=== PATIENT | female | born 1945 | race Caucasian/White ===

== ENCOUNTER 2019-06-20 08:49 | Outpatient (CLI) | payer MEDICARE, SELFPAY ==
--- NOTE | ~2019-06-20 | MM_ITS ---
EXAMINATION: MM screening george BI w rosalia HISTORY: Screening mammogram TECHNIQUE: Craniocaudal and mediolateral oblique 3-D tomosynthesis images were obtained and synthetic 2-D images were generated. CAD analysis was submitted and interpreted. COMPARISON: 06/16/2017 bilateral digital screening mammogram BREAST PARENCHYMAL COMPOSITION: The breasts are heterogeneously dense, which may obscure small masses . FINDINGS: Bilateral benign calcifications. There is no evidence of suspicious mass, calcification, or architectural distortion to suggest malignancy in either breast. There has been no suspicious interv al change. IMPRESSION: 1. No mammographic evidence of malignancy. 2. Recommend routine screening mammography in one year. BI-RADS Category 2: Benign finding(s). Reviewed, dictated and finalized at location A.
--- NOTE | ~2019-06-20 | DEXA_ITS ---
Bone Density Report Name: Trinh Amin Age: 73 Sex: Female Ethnicity: White Date of : 1945 Indication: osteopenia; monitoring treatment; prior fracture; Referring Provider: VILMA SHARP Study: Bone densitometry was performed. Exam Date: June 20, 2019 Accession number: [id number] Bone Density: Region BMD T-score Z-score Classification AP Spine (L1-L4) 0.771 -2.5 -0.2 Osteoporosis Femoral Neck (Left) 0.626 -2.0 -0.1 Osteopenia Total Hip (Left) 0.784 -1.3 0.4 Osteopenia Total Hip Bilateral Avg 0.778 -1.4 0.4 Osteopenia Femoral Neck (Right) 0.621 -2.1 -0.1 Osteopenia Total Hip (Right) 0.771 -1.4 0.3 Osteopenia World Health Organization criteria for BMD impression classify patients as: Normal (T-score at or above -1.0), Osteopenia (T-score between -1.0 and -2.5), or Osteoporosis (T-score at or below -2.5). 10-year Fracture Risk: FRAX not reported because: Some T-score for Spine Total or Hip Total or Femoral Neck at or below -2.5 Treated for osteoporosis Previous Exams: Region Exam Age BMD T-score BMD Change BMD Change Date g/cm2 vs Baseline vs Previous AP Spine(L1-L4) 06/20/2019 73 0.771 -2.5 -0.027(-3.4%)# -0.027(-3.4%)# 06/16/2017 71 0.798 -2.3 Total Hip(Left) 06/20/2019 73 0.784 -1.3 -0.007(-0.9%) -0.007(-0.9%) 06/16/2017 71 0.791 -1.2 Total Hip(Right) 06/20/2019 73 0.771 -1.4 0.006(0.8%) 0.006(0.8%) 06/16/2017 71 0.765 -1.4 *Denotes significance at 95% confidence level, LSC for AP Spine = 0.022 g/cm2, LSC for Total Hip = 0.027 g/cm2 Clinical Information Provided by Patient: Has had a low trauma fracture Is being treated for osteoporosis Has used the following medications: Fosamax (i.e. alendronate), Vitamin D Patient maximum height was 64 Menopause Age: 47 Drinks caffeinated beverages Onset of menses at age 14 Number of children 1 Impression: The patient has established osteoporosis, based on the Total Spine T-score and the existence of a prior fracture. The patient has risk factors, including: previous fracture. No significant bone loss was observed. Discussion: PATIENT UNDER TREATMENT WITH NO SIGNIFICANT BMD LOSS SINCE LAST EXAM. In an untreated patient, BMD typically declines with age. A lack of decline or gain is usually a sign that treatment is efficacious and fracture risk is reduced. It is important to ask patients whether they are taking their medications and to encourage continued and appropriate c
== END 2019-06-20 08:50 | disposition home or self-care (01) ==
LOC: ANHIMG 08:52
PROVIDERS: PCP Family Medicine; Visit Provider Nurse Practitioner Family
DX: Z12.31 Encounter for screening mammogram for malignant neoplasm of breast (principal); Z78.0 Asymptomatic menopausal state; M85.89 Other specified disorders of bone density and structure, multiple sites; M81.0 Age-related osteoporosis without current pathological fracture
CPT/HCPCS: 77063; 77067; 77080

== ENCOUNTER 2020-10-07 12:03 | Emergency (ER) | payer MEDICARE, SELFPAY ==
[2020-10-07 12:12] VITALS: BP 122/93; PULSE 72; RESP 18; TEMP 36.3; O2SAT 100
--- NOTE | 2020-10-07 12:37 | ED.GENADULT ---
HPI - General Adult General Chief complaint: Extremity Injury, Lower Stated complaint: Left foot swelling Time Seen by Provider: 10/07/20 12:24 Source: patient and RN notes reviewed Mode of arrival: ambulatory Limitations: no limitations History of Present Illness HPI narrative: Patient presents today complaining of 4-day history of left lower leg and foot swelling without pain. States the swelling is worsening and she became more concerned today because she was unable to get her shoe on well. Patient just returned last night at midnight from a cruise. She did fly out and return via airplane. States the swelling started while she was on her cruise. Denies numbness or tingling in the leg or foot. Denies history of DVT. She is not on any blood thinners. MD complaint: Left leg swelling Related Data Home Medications Medication Instructions Recorded Confirmed cholecalciferol (vitamin D3) 50 2,000 unit PO DAILY 03/21/19 10/07/20 mcg (2,000 unit) capsule Allergies Allergy/AdvReac Type Severity Reaction Status Date / Time Sulfa (Sulfonamide Allergy Unknown Pruritic Verified 10/07/20 12:16 Antibiotics) rash Review of Systems Review of Systems: CONSTITUTIONAL: Denies body aches, fever, chills, or sweats. EYES: Denies visual changes, redness, or discharge. ENT: Denies rhinorrhea, congestion, sore throat, or otalgia. CARDIOVASCULAR: Denies chest pain, palpitations, or edema. RESPIRATORY: Denies cough or dyspnea. GASTROINTESTINAL: Denies abdominal pain, nausea, vomiting, or diarrhea. GENITOURINARY: Denies dysuria or hematuria. SKIN: Denies rash, itching, or wounds. MUSCULOSKELETAL: Denies back pain, joint pain, or myalgia. +Left leg and foot swelling NEUROLOGIC: Denies headache, numbness, tingling, or weakness. PSYCH: Denies depression or anxiety. [facility] Past Medical History Medical History Fracture of right humerus (~05/2018) Mammogram normal (~06/20/19) Megacolon Osteopenia Took Fosamax 1125-5430, 06/2019-present Dexa scan 06/2019 Osteoporosis Shingles (~10/2017) Skin cancer (~2008) Vitamin D deficiency Surgical History Surgical History History of dilatation and curettage (~1974) History of hysterectomy (~2002) Hx of colonoscopy (~07/16/17) Family History Family History Grandparent Cerebrovascular accident Family history of malignant neoplasm Diabetes mellitus Mother Family history of chronic obstructive pulmonary disease Father Family history of Alzheimer's disease Family history of heart disease in male family member before age 55 Patient's father is , Onset Age: 84 Hypertension Family history of cardiovascular disease Social History Social History Smoking status: Never smoker Second hand tobacco smoke exposure: No Alcohol intake: current Comments At time of signature, I have reviewed and agree with nursing past medical, surgical, social and family history unless otherwise noted. Please see nursing chart for further information. There is no relevant family history pertinent to the presenting complaint Exam Narrative: GENERAL: Well-appearing, well-nourished, and in no acute distress. HEAD: Normocephalic, atraumatic. EYES: EOMI. No redness or drainage. Conjunctivae normal. ENT: Mucous membranes pink and moist. NECK: Normal AROM. CHEST: No respiratory distress. EXTREMITIES: Left le+ pitting edema to the foot and ankle. 1-2+ nonpitting edema to the distal half of the lower leg, compared to right leg. Leg and foot are nontender. Distal sensation is intact. Capillary refill normal. Pedal pulse strong. Color normal. Full AROM of the ankle and all toes without pain. Negative Homans. No tenderness of the calf. SKIN: Warm, dry, n
== END 2020-10-07 12:45 | disposition short-term general hospital (02) ==
PROVIDERS: Emergency Provider Nurse Practitioner; PCP Nurse Practitioner Family
DX: R22.42 Localized swelling, mass and lump, left lower limb (principal); M81.0 Age-related osteoporosis without current pathological fracture; M85.80 Other specified disorders of bone density and structure, unspecified site; Z85.828 Personal history of other malignant neoplasm of skin; E55.9 Vitamin D deficiency, unspecified
CPT/HCPCS: 99212; G0463

== ENCOUNTER 2020-10-07 13:02 | Emergency (ER) | payer MEDICARE, SELFPAY ==
--- NOTE | ~2020-10-07 | US_ITS ---
EXAMINATION: US venous doppler [facility] DATE: 10/07/2020 14:39 INDICATION: Left lower limb pain and swelling. TECHNIQUE: Grayscale ultrasound images without and with compression and Doppler ultrasound images of the left lower extremity veins were obtained. COMPARISON: None. FINDINGS: The visualized portions of left common femoral vein, profunda (deep) femoral vein, femoral vein, popl iteal vein, peroneal veins, posterior tibial veins, and greater saphenous vein outflow are patent. IMPRESSION: 1. No deep venous thrombosis. Reviewed, dictated and finalized at location A.
--- NOTE | ~2020-10-07 | CT_ITS ---
EXAMINATION: CT abdomen pelvis w con DATE: 10/07/2020 17:01 INDICATION: Abdominal distention. TECHNIQUE: Computed tomography (CT) of the abdomen and pelvis was performed with 100 mL Omnipaque 350 intravenous contrast. Automated exposure control and iterative reconstruction technique were employe d. The dose-length product was 445.91 mGy-cm. COMPARISON: Contrast enema 07/17/2017 FINDINGS: The visualized portions of the lung bases demonstrate mild atelectasis. No pleural effusion . The heart size is normal. No pericardial effusion. Left hepatic lobe is small. The gallbladder is n ormal. Calcifications in the spleen are consistent with old granulomatous disease. The pancreas, adre nal glands, and kidneys are normal. There is chronic severe distention of the transverse and descendi ng colon. The sigmoid colon is decompressed. The small bowel is normal in caliber. There are no patho logically enlarged lymph nodes. There is no free intraperitoneal fluid. There is mild thoracolumbar s pondylosis. IMPRESSION: 1. Chronic severe distention of the transverse and descending colon, consistent with adynamic ileus. Reviewed, dictated and finalized at location A.
[2020-10-07 14:11] VITALS: BP 165/89; PULSE 76; RESP 16; TEMP 36.3; O2SAT 97
--- NOTE | 2020-10-07 16:39 | ED.EXTPRO ---
HPI - Extremity Problem General Chief complaint: Extremity Problem,Nontraumatic Stated complaint: left leg edema Time Seen by Provider: 10/07/20 16:02 Source: patient Mode of arrival: ambulatory Limitations: no limitations History of Present Illness HPI Narrative: 75-year-old female Generally in good health Complains of new onset of painless and atraumatic swelling to her left leg times for 5 days Right leg is unaffected Related Data Home Medications Medication Instructions Recorded Confirmed cholecalciferol (vitamin D3) 50 2,000 unit PO DAILY 03/21/19 10/07/20 mcg (2,000 unit) capsule Allergies Allergy/AdvReac Type Severity Reaction Status Date / Time Sulfa (Sulfonamide Allergy Unknown Pruritic Verified 10/07/20 12:16 Antibiotics) rash Review of Systems Review of Systems: All systems reviewed & are unremarkable except as noted in HPI and below Constitutional: Constitutional: Reports no additional constitutional complaints, Denies chills, Denies fever(s) and Denies headache(s) Eyes: Eyes: Reports no additional eye complaints and Denies change in vision ENT: Denies headache(s) and Denies sore throat Cardiovascular: Cardiovascular: Denies chest pain and Denies dyspnea Respiratory: Respiratory: Denies cough and Denies dyspnea Gastrointestinal: Gastrointestinal: Denies abdominal pain, Denies diarrhea and Denies vomiting Comments: Distention Genitourinary: Genitourinary: Denies urinary frequency and Denies dysuria Musculoskeletal: Musculoskeletal: Denies myalgias, Denies deformity, Denies arthralgias, Denies joint swelling and Denies numbness Integumentary/Breasts: Skin/Breast: Denies rash and Denies wounds Neurologic: Denies headache(s), Denies focal weakness and Denies numbness Psychiatric: Psychiatric: Reports no additional psychiatric complaints Endocrine: Endocrine: Reports no additional endocrine complaints Hematologic/Lymphatic: Hematologic/Lymphatic: Reports no additional hematologic/lymphatic complaints Allergic/Immunologic: Allergic/Immunologic: Reports no additional allergic/immunologic complaints [facility] Past Medical History Medical History Fracture of right humerus (~05/2018) Mammogram normal (~06/20/19) Megacolon Osteopenia Took Fosamax 7420-3719, 06/2019-present Dexa scan 06/2019 Osteoporosis Shingles (~10/2017) Skin cancer (~2008) Vitamin D deficiency Surgical History Surgical History History of dilatation and curettage (~1974) History of hysterectomy (~2002) Hx of colonoscopy (~07/16/17) Family History Family History Grandparent Cerebrovascular accident Family history of malignant neoplasm Diabetes mellitus Mother Family history of chronic obstructive pulmonary disease Father Family history of Alzheimer's disease Family history of heart disease in male family member before age 55 Patient's father is , Onset Age: 84 Hypertension Family history of cardiovascular disease Social History Social History Smoking status: Never smoker Second hand tobacco smoke exposure: No Alcohol intake: current Gender identity (if verbalized by the patient): Female Exam Const: General: cooperative and no acute distress Orientation/consciousness: patient oriented x3 (alert) HENMT: Head: normal to inspection, normocephalic and atraumatic Ears: external ears normal General nose exam: no epistaxis Eyes: Conjunctivae: conjunctivae normal EOM: EOMs intact bilaterally Neck: Neck: normal visual inspection, supple and no JVD Resp: Effort & Inspection: normal respiratory effort and not labored Auscultation: clear to auscultation bilaterally and other (BS =) GI: Inspection: distended GI Palp: Yes Soft to
[2020-10-07 16:54] LABS: Estimated CRCL calculation 48 ml/min; Estimated Glomerular Filt Rate > 60
[2020-10-07 16:56] LABS: Basophils Absolute Auto 0.1 K/mm3 (0.0-0.1); Basophils Percent Auto 0.9 % (0.2-1.2); Eosinophils Absolute Auto 0.4 K/mm3 (0-0.3); Eosinophils Percent Auto 5.8 % (0-4.4); Hemoglobin 15.6 g/dL (12.0-15.0); Immature Granulocyte Absolute 0.02 K/mm3 (0.00-0.031); Immature Granulocyte Percent A 0.3 % (0-0.5); Lymphocytes Absolute Auto 1.92 K/mm3 (0.9-3.2); Lymphocytes Percent Auto 28.4 % (18.3-44.2); Mean Corpuscular HGB Conc 32.5 g/dl (32-36); Mean Corpuscular Hemoglobin 30.1 pg (26-34); Mean Corpuscular Volume 92.7 fl (80-100); Monocytes Absolute Auto 0.6 K/mm3 (0.1-0.6); Monocytes Percent Auto 8.7 % (2.6-8.5); Neutrophils Absolute Auto 3.8 K/mm3 (1.3-6.7); Neutrophils Percent Auto 55.9 % (45.5-73.1); Platelet Count Result 160 k/mm3 (150-375); Red Blood Count 5.18 M/mm3 (4.2-5.4); Red Cell Distribution Width 13.9 % (11.5-14.5); White Blood Count 6.8 K/mm3 (4.5-10.0)
[2020-10-07 17:11] LABS: Alanine Aminotransferase 23 U/L (4-35); Albumin Level 4.7 g/dL (3.5-5.1); Alkaline Phosphatase 59 U/L (38-126); Anion Gap 10 mmol/L (8-16); Aspartate Amino Transferase 34 U/L (14-36); Bilirubin,Total 0.9 mg/dL (0.2-1.3); Blood Urea Nitrogen 18 mg/dL (7-17); Calcium 9.3 mg/dL (8.4-10.2); Carbon Dioxide 26 mmol/L (22-30); Chloride 101 mmol/L (98-107); Estimated CRCL calculation 48 ml/min; Estimated Glomerular Filt Rate > 60; Glucose 85 mg/dL (65-110); Potassium 3.8 mmol/L (3.4-5.0); Sodium 137 mmol/L (137-145)
[2020-10-07 17:44] VITALS: BP 149/78; PULSE 82; RESP 16; O2SAT 98
== END 2020-10-07 18:00 | disposition home or self-care (01) ==
PROVIDERS: Emergency Provider Emergency Medicine; PCP Nurse Practitioner Family
DX: R60.0 Localized edema (principal)
CPT/HCPCS: 74177; 80053; 85025; 93971; 99284; Q9967

== ENCOUNTER 2020-12-03 08:34 | Outpatient (CLI) | payer MEDICARE, SELFPAY ==
--- NOTE | 2020-12-03 08:39 | ECHO_ITS ---
Patient Info Name: Trinh Amin Age: 75 years : 1945 Gender: Female Ht: 64 in Wt: 168 lbs BSA: 1.88 m2 HR: 63 bpm BP: 152 / 95 mmHg Technical Quality: Fair Exam Date: 12/03/2020 8:52 AM Exam Location: [facility] Patient Status: Outpatient Admit Date: 12/03/2020 Staff Ordering Physician: Mariann Chin NP Risk Control Analyst: Clara Garcia RDCS Attending Provider: Mariann Chin NP Referring Physician: Giuseppe FAITH; Exam Type: CA echo doppler color flow Study Info Indications R60.0 - Localized edema Complete two-dimensional, color flow and Doppler transthoracic echocardiogram is performed. Summary 1. Complete two-dimensional, color flow and Doppler transthoracic echocardiogram is performed. 2. Left ventricular chamber dimension is normal. 3. Left ventricular systolic function is normal, estimated at 60-65%. 4. The left ventricular diastolic function is grade I diastolic dysfunction. 5. E/e' 8 is minimally elevated. Left Ventricle E/e' 8 is minimally elevated. Left ventricular chamber dimension is normal. Left ventricular systolic function is normal, estimated at 60-65%. The left ventricular diastolic function is grade I diastolic dysfunction. Right Ventricle Right ventricular chamber dimension is normal. Right ventricular systolic function is normal. Left Atria Left atrial chamber dimension is normal. Right Atria Right atrial chamber dimension is normal. Aortic Valve The aortic valve is trileaflet. There is no aortic valve stenosis. There is no aortic valve regurgitation. Pulmonic Valve There is no pulmonic regurgitation. Mitral Valve There is no mitral valve stenosis. There is no mitral valve regurgitation. Tricuspid Valve There is no tricuspid valve regurgitation. Pericardium/Pleural There is no pericardial effusion. Inferior Vena Cava Normal inferior vena cava with >50% collapse upon inspiration consistent with normal right atrial pressure, 5 mmHg. Aorta The aortic root size at the sinus of Valsalva is normal. Left Ventricular Outflow Tract Name Value Normal LVOT 2D LVOT Diameter 2.0 cm LVOT Doppler LVOT Peak Gradient 3 mmHg LVOT Mean Gradient 2 mmHg LVOT VTI 21 cm LVOT VTI/AV VTI Ratio 0.9 LVOT Stroke Volume 64 ml LVOT CO 3.8 l/min LVOT CI 2.0 l/min/m2 Pulmonic Valve Name Value Normal RVOT Doppler RVOT Peak Gradient 2 mmHg PV Doppler PV Peak Gradient 3 mmHg Mitral Valve Name
== END 2020-12-03 08:35 | disposition home or self-care (01) ==
PROVIDERS: PCP Family Medicine; Visit Provider Nurse Practitioner Family
DX: R60.0 Localized edema (principal)
CPT/HCPCS: 93306

== ENCOUNTER 2021-07-22 08:56 | Outpatient (CLI) | payer MEDICARE, SELFPAY ==
--- NOTE | ~2021-07-22 | MM_ITS ---
EXAMINATION: MM screening george BI w rosalia HISTORY: Screening mammogram TECHNIQUE: Craniocaudal and mediolateral oblique 3-D tomosynthesis images were obtained and synthetic 2-D images were generated... Bilateral rotated lateral CC views. CAD analysis was submitted and inte rpreted. COMPARISON: No prior mammogram is available for comparison at this institution. BREAST PARENCHYMAL COMPOSITION: The breasts are heterogeneously dense, which may obscure small masses . FINDINGS: Scattered benign calcifications, mainly benign secretory type calcifications. There is no e vidence of suspicious mass, calcification, or architectural distortion to suggest malignancy in eithe r breast. There has been no suspicious interval change. IMPRESSION: 1. No mammographic evidence of malignancy. 2. Recommend routine screening mammography in one year. BI-RADS Category 2: Benign finding(s). Reviewed, dictated and finalized at location A.
--- NOTE | ~2021-07-22 | DEXA_ITS ---
Bone Density Report Name: SOFIE GUILLEN Age: 75 Sex: Female Ethnicity: White Date of : 1945 Indication: postmenopausal osteoporosis; monitoring treatment; height loss; prior fracture; Referring Provider: VILMA SHARP Study: Bone densitometry was performed. Exam Date: July 22, 2021 Accession number: [id number] Bone Density: Region BMD T-score Z-score Classification AP Spine(L1-L4) 0.801 -2.2 0.1 Osteopenia Femoral Neck (Left) 0.628 -2.0 0.1 Osteopenia Total Hip (Left) 0.806 -1.1 0.7 Osteopenia Femoral Neck (Right) 0.649 -1.8 0.3 Osteopenia Total Hip (Right) 0.802 -1.1 0.6 Osteopenia Total Hip Mean 0.804 -1.1 0.7 Osteopenia World Health Organization criteria for BMD impression classify patients as: Normal (T-score at or above -1.0), Osteopenia (T-score between -1.0 and -2.5), or Osteoporosis (T-score at or below -2.5). 10-year Fracture Risk: FRAX not reported because: Treated for osteoporosis Previous Exams: Region Exam Age BMD T-score BMD Change BMD Change Date g/cm2 vs Baseline vs Previous AP Spine (L1-L4) 07/22/2021 75 0.801 -2.2 0.003 (0.4%)# 0.030 (3.9%)* 06/20/2019 73 0.771 -2.5 -0.027 (-3.4%) -0.027 (-3.4%) 06/16/2017 71 0.798 -2.3 Total Hip(Left) 07/22/2021 75 0.806 -1.1 0.016 (2.0%) 0.023 (2.9%) 06/20/2019 73 0.784 -1.3 -0.007 (-0.9%) -0.007 (-0.9%) 06/16/2017 71 0.791 -1.2 Total Hip(Right) 07/22/2021 75 0.802 -1.1 0.037 (4.8%)* 0.031 (4.0%)* 06/20/2019 73 0.771 -1.4 0.006 (0.8%) 0.006 (0.8%) 06/16/2017 71 0.765 -1.4 *Denotes significance at 95% confidence level, LSC for AP Spine = 0.022 g/cm2, LSC for Total Hip = 0.027 g/cm2 # Denotes dissimilar scan types or analysis methods Clinical Information Provided by Patient: Has had a low trauma fracture Is being treated for osteoporosis Has used the following medications: Fosamax (i.e. alendronate) Patient maximum height was 65 Menopause Age: 47 Drinks caffeinated beverages Onset of menses at age 14 Number of children 1 Impression: The patient has low bone mass, based on the Total Spine T-score. The patient has risk factors, including: previous fracture. No significant bone loss was observed. Discussion: PATIENT UNDER TREATMENT WITH NO SIGNIFICANT BMD LOSS SINCE LAST EXAM. In an untreated patient, BMD typically declines with age. A lack of decline or gain is usually a sign that treatment is efficacious and
== END 2021-07-22 08:57 | disposition home or self-care (01) ==
LOC: ANHIMG 08:57
PROVIDERS: PCP Family Medicine; Visit Provider Nurse Practitioner Family
DX: Z12.31 Encounter for screening mammogram for malignant neoplasm of breast (principal); Z78.0 Asymptomatic menopausal state; M85.89 Other specified disorders of bone density and structure, multiple sites
CPT/HCPCS: 77063; 77067; 77080

== ENCOUNTER 2021-07-23 00:20 | Day surgery (SDC) | payer MEDICARE, SELFPAY ==
[2021-07-09 14:05] VITALS: BMI 28.3
[2021-07-09 14:16] VITALS: BMI 28.3
[2021-07-23 08:43] VITALS: BP 139/76; PULSE 84; RESP 18; TEMP 36.6; O2SAT 97
[2021-07-23] MEDS: LACTATED RINGERS 1,000 ML 150 ML IV CONT (08:55)
--- NOTE | 2021-07-23 09:26 | WPDANESEPPF ---
Anes - Initial Pre Proc Eval Procedure: Operation Date: 07/23/21 10:00 Proposed Procedures p Colonoscopy - Hernan Cedeno MD Date/Time: 07/23/21 09:26 Surgeon: Hernan Cedeno MD Pre Op Diagnosis: positive cologuard Patient Data Age: 75 Gender: F Height: 1.63 m Weight: 74.8 kg Last Vital Signs Temp 36.6 C 07/23/21 08:43 Pulse 84 07/23/21 08:43 Resp 18 07/23/21 08:43 BP 139/76 07/23/21 08:43 Pulse Ox 97 07/23/21 08:43 O2 Del Method Room Air 07/23/21 08:43 Allergies Allergy/AdvReac Type Severity Reaction Status Date / Time Sulfa (Sulfonamide Allergy Unknown Pruritic Verified 07/23/21 08:42 Antibiotics) rash Home Medications Medication Instructions Recorded Confirmed Type cholecalciferol (vitamin D3) 50 4,000 unit PO DAILY 03/22/21 07/23/21 History mcg (2,000 unit) capsule alendronate 70 mg tablet 70 mg PO WEEKLY #12 tabs 04/23/21 07/23/21 Rx levothyroxine 50 mcg tablet 50 mcg PO DAILY #90 tabs 06/18/21 07/23/21 Rx peg 3350-electrolytes 236 240 ml PO Q10M #4,000 mL 06/26/21 07/23/21 Rx gram-22.74 gram-6.74 gram-5.86 gram solution (Golytely) Patient hx anesthesia problems: none Family hx anesthesia problems: none Results Review: All pre-operative results and documents have been reviewed as part of the pre-operative evaluation. [facility] Past Medical History Medical History Fracture of right humerus (~05/2018) Hyperlipidemia Mammogram normal (~06/20/19) Megacolon Osteopenia Took Fosamax 1455-7593, 06/2019-present Dexa scan 06/2019 Osteoporosis Shingles (~10/2017) Skin cancer (~2008) Vitamin D deficiency Surgical History Surgical History History of dilatation and curettage (~1974) History of hysterectomy (~2002) Hx of colonoscopy (~07/16/17) Family History Family History Grandparent Cerebrovascular accident Family history of malignant neoplasm Diabetes mellitus Mother Family history of chronic obstructive pulmonary disease Father Family history of Alzheimer's disease Family history of heart disease in male family member before age 55 Patient's father is , Onset Age: 84 Hypertension Family history of cardiovascular disease Social History Social History Smoking status: Never smoker Second hand tobacco smoke exposure: No Alcohol intake: current Alcohol use details: rare, less than 1 per week Substance use type: does not use Living arrangements: alone Gender identity (if verbalized by the patient): Female Spiritual care concerns: No Anes - Eval Final PreProcedure Day of Procedure 07/23/21 09:26 Patient weight: overweight Heart: regular rate and rhythm Lungs: clear to auscultation Airway: Mallampati scale class II Last oral intake: >/= 8 hours ASA classification: II Anesthetic plan: proceed Anesthesia type and monitoring: general GIVS and standard monitoring Results Review: All pre-operative results and documents have been reviewed as part of the pre-operative evaluation. Informed Consent: The patient's anesthetic plan and its attendant risks and benefits were discussed with the patient/family/POA. Questions were solicited and answers provided to the satisfaction of the patient/family/POA.
--- NOTE | 2021-07-23 09:39 | WPDGICN ---
Assessment and Plan Assessment and plan (1) Positive colorectal cancer screening using Cologuard test: Code(s): R19.5 - Other fecal abnormalities Status: Acute Assessment and Plan: Patient presents for screening colonoscopy because of positive Cologuard test further recommendations after endoscopy. 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 It is difficult to know whether this is from chronic constipation or related to a primary diagnosis. Continued use of stool softeners and laxatives on a routine basis are encouraged. 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 Patient has a history of chronic constipation. Previous workup revealed that she had a ken colon. Patient has difficulty with bowel movements that his lifelong. She has had several colonoscopies most recently [address] Hernandez. Distended colon was identified. She has been advised to take a stool softener such as Metamucil and laxative such as MiraLax on rather routine basis. Patient recently found to have a positive Cologuard test. She returns today for colonoscopy to assess more thoroughly. Review of Systems Review of Systems: Review of systems noncontributory. [facility] Past Medical History Medical History Fracture of right humerus (~05/2018) Hyperlipidemia Mammogram normal (~06/20/19) Megacolon Osteopenia Took Fosamax 8801-3213, 06/2019-present Dexa scan 06/2019 Osteoporosis Shingles (~10/2017) Skin cancer (~2008) Vitamin D deficiency Surgical History Surgical History History of dilatation and curettage (~1974) History of hysterectomy (~2002) Hx of colonoscopy (~07/16/17) Family History Family History Grandparent Cerebrovascular accident Family history of malignant neoplasm Diabetes mellitus Mother Family history of chronic obstructive pulmonary disease Father Family history of Alzheimer's disease Family history of heart disease in male family member before age 55 Patient's father is , Onset Age: 84 Hypertension Family history of cardiovascular disease Social History Social History Smoking status: Never smoker Second hand tobacco smoke exposure: No Alcohol intake: current Alcohol use details: rare, less than 1 per week Substance use type: does not use Living arrangements: alone Gender identity (if verbalized by the patient): Female Spiritual care concerns: No Meds Home Medications and Allergies Home Medications Medication Instructions Recorded Confirmed Type cholecalciferol (vitamin D3) 50 4,000 unit PO DAILY 03/22/21 07/23/21 History mcg (2,000 unit) capsule alendronate 70 mg tablet 70 mg PO WEEKLY #12 tabs 04/23/21 07/23/21 Rx levothyroxine 50 mcg tablet 50 mcg PO DAILY #90 tabs 06/18/21 07/23/21 Rx peg 3350-electrolytes 236 240 ml PO Q10M #4,000 mL 06/26/21 07/23/21 Rx gram-22.74 gram-6.74 gram-5.86 gram solution (Golytely) Allergies Allergy/AdvReac Type Severity Reaction Status Date / Time Sulfa (Sulfonamide Allergy Unknown Pruritic Verified 07/23/21 08:42 Antibiotics) rash Vital Signs Vital Signs - 24 hr 07/23/21 08:43 Temperature 97.8 F Pulse Rate 84 Respiratory Rate 18 Blood Pressure 139/76 Pulse Oximetry 97 Oxygen Delivery Room Air Exam Narrative: Physical exam reveals patient to be alert. Vital signs stable. HEENT exam reveals no icterus. Lungs are clear. Heart without murmur. Abdomen bowel sounds
[2021-07-23 10:13] VITALS: BP 119/68; PULSE 73; RESP 23; O2SAT 97
[2021-07-23 10:23] VITALS: BP 120/91; PULSE 73; RESP 23; O2SAT 97
[2021-07-23 10:33] VITALS: BP 142/80; PULSE 73; RESP 20; O2SAT 99
[2021-07-23 10:47] LABS: Hematocrit 46.1 % (37.0-47.0); Mean Corpuscular HGB Conc 32.5 g/dl (32-36); Mean Corpuscular Hemoglobin 30.6 pg (26-34); Mean Corpuscular Volume 94.1 fl (80-100); Mean Platelet Volume 11.5 fl (7.4-10.4); Platelet Count Result 145 k/mm3 (150-375); Red Cell Distribution Width 13.5 % (11.5-14.5); White Blood Count 5.6 K/mm3 (4.5-10.0)
[2021-07-23 11:14] LABS: Alanine Aminotransferase 16 U/L (6-35); Alkaline Phosphatase 62 U/L (38-126); Aspartate Amino Transferase 29 U/L (14-36)
[2021-07-23 11:44] LABS: Carcinoembryonic Antigen 5.8 ng/mL (0.0-3.0)
== END 2021-07-23 11:04 | disposition home or self-care (01) ==
PROVIDERS: PCP Family Medicine; Visit Provider Internal Medicine Gastroenterology
PROC: 0DJD8ZZ Inspection of Lower Intestinal Tract, Via Natural or Artificial Opening Endoscopic (ICD-10-PCS; CPT 45378; principal; 2021-07-23 10:00)
DX: C18.4 Malignant neoplasm of transverse colon (principal); R19.5 Other fecal abnormalities; K59.39 Other megacolon; K59.00 Constipation, unspecified; E78.5 Hyperlipidemia, unspecified; M81.0 Age-related osteoporosis without current pathological fracture; E55.9 Vitamin D deficiency, unspecified; E03.9 Hypothyroidism, unspecified
CPT/HCPCS: 45380; 45381; 36415; 80076; 82378; 85027; 88305; J2704; J7120

== ENCOUNTER → 2021-08-05 09:47 | Outpatient (CLI) | payer MEDICARE, SELFPAY ==
--- NOTE | ~2021-08-05 | CT_ITS ---
EXAMINATION: CT abdomen pelvis wo con DATE: 08/05/2021 10:01 INDICATION: Malignant neoplasm of the colon. TECHNIQUE: Computed tomography (CT) of the abdomen and pelvis was performed without intravenous contr ast. The dose-length product was 818.10 mGy-cm. Automated exposure control and iterative reconstructi on technique were employed. COMPARISON: CT dated 10/07/2020. FINDINGS: There is chronic severe distention of the transverse and ascending colon with transition in the left mid abdomen, coronal images 62-73. Findings suspicious for obstructing mass. Lung bases unremarkable. The liver, spleen, pancreas, adrenal glands and kidneys are unremarkable. Ga llbladder is present. No significant vascular abnormality. No lymphadenopathy. No significant small b owel dilation. No focal lytic or sclerotic lesions. No acute osseous abnormality. IMPRESSION: 1. Chronic severe distention of the transverse and ascending colon with transition in the left midabd omen, suspicious for obstructing mass. Correlate clinically with prior GI examinations. Reviewed, dictated and finalized at location B. IMPRESSION: 1. Chronic severe distention of the transverse and ascending colon with transit ion in the left midabdomen, suspicious for obstructing mass. Correlate clinical ly with prior GI examinations.
== END ==
PROVIDERS: PCP Family Medicine; Visit Provider Surgery
DX: C18.9 Malignant neoplasm of colon, unspecified (principal)
CPT/HCPCS: 74176

== ENCOUNTER 2021-08-13 08:03 | Outpatient (CLI) | payer MEDICARE, SELFPAY ==
--- NOTE | 2021-08-13 09:09 | ECG_ITS ---
Measurements Intervals [place] Rate: 62 P: 44 VT: 156 QRS: -2 QRSD: 92 T: -13 QT: 396 QTc: 405 Interpretive Statements SINUS RHYTHM WITH SINUS ARRHYTHMIA NO PREVIOUS ECG AVAILABLE FOR COMPARISON Electronically Signed On 08-13-2021 11:21:45 CDT by Daniel Hurd M.D.
== END 2021-08-13 08:04 | disposition home or self-care (01) ==
LOC: ANHSURGERY 08:07
PROVIDERS: PCP Family Medicine; Visit Provider Surgery
DX: C18.9 Malignant neoplasm of colon, unspecified (principal)
CPT/HCPCS: 36415; 86850; 86900; 86901; 93005

== ENCOUNTER 2021-08-20 13:58 | Inpatient (IN) | payer MEDICARE, SELFPAY ==
[2021-08-13 08:22] VITALS: BP 169/86; PULSE 74; RESP 16; TEMP 36.3; O2SAT 96; BMI 28.3
--- NOTE | 2021-08-13 08:33 | PC.NURSE ---
Report to the Outpatient Waiting Room, entrance under the green pavilion located off [facility], at time __6:00AM on date __08/19/21 . OR Time: __7:30AM . - You and your visitor will be asked a series of questions to screen for COVID 19 for your protection. - Only one visitor is allowed at this time. - The patient visitor is requested to leave or wait in car when not with patient. - A mask is required within the hospital. Patients may have clear liquids (water, carbonated beverages, clear teas, apple juice) until 3 hours prior to surgery with a maximum of 20 ounces. - No food from midnight until time of surgery BOWEL PREP ON DAY BEFORE SURGERY - Infants may have breast milk until 4 hours before surgery, infant formula 6 hours prior to surgery. - Children will be allowed to drink immediately following surgery. If applicable, please bring a bottle or sippy cup to assist with drinking. Juice, water, soda, and popsicles are readily available. For infants on formula, please bring formula the day of surgery. Pacifiers are allowed. ENSURE BUNDLE DIRECTED Take the following medications with a SIP of water the morning of surgery: __LEVOTHYROXINE Medications to discontinue per physician ____HOLD ALL VITAMINS/SUPPLEMENTS 3 DAYS PRE-OP 3 DAYS PRE-OP Date to take last dose____08/15/21 TAKE ANTIBIOTICS DIRECTED ON DAY BEFORE SURGERY Please no make-up, nail mohawk, hairspray, perfume, deodorant, or body powder the day of surgery. No jewelry (including any body piercings) or valuables the day of surgery, leave them at home. Please take a shower or bath the night before, or the morning of, surgery with an antibacterial soap. Wear comfortable, loose fitting clothing. Children are encouraged to wear pajamas. - Jewelry must be removed prior to entering the operating room. Rings and piercings that are not removed may be cut off. - The hospital will not accept responsibility for valuables. - Please leave all valuables, including medications, at home the day of surgery. HIBICLENS SHOWER ON DAY BEFORE SURGERY AND MORNING OF SURGERY If you are going home after surgery, a licensed livery car driver must drive you home. - NO public transportation without another adult. - We recommend that an adult stay with you for 24 hours following discharge. - We also recommend that you do not drive, make important decision, drink alcoholic beverages, or take any drugs that were not prescribed by your health care provider for at least 24 hours after your discharge time. For Pediatric surgeries, we recommend two adults accompany the child home (only one inside the building at this time). Follow any additional instructions given to you from your surgeon. If you or anyone in your household have experienced Covid symptoms in the past week, please notify your surgeon or the nurse liaison at the phone number below for possible testing. Telephone instructions given to __PATIENT and asked if any additional questions and then verbalized understanding. Patient advised to call surgeon office or pre surgery nurse liaison [phone] if any additional questions.
[2021-08-19] VITALS (15 sets, daily range): BP systolic 104–128; BP diastolic 53–69; PULSE 62–84; RESP 12–20; TEMP 35.5–36.5; O2SAT 95–100
[2021-08-19] MEDS: LACTATED RINGERS 1,000 ML 30 ML IV CONT ×2 (06:30→13:18)
[2021-08-19] MEDS: ACETAMINOPHEN 500 MG TABLET 1000 MG PO ×2 (06:35→21:36)
[2021-08-19] MEDS: KETOROLAC 15 MG/ML VIAL (*BKC) IV PUSH (06:39)
--- NOTE | 2021-08-19 06:45 | WPDANESEPPF ---
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 Patient Data Age: 75 Gender: F Height: 1.64 m Weight: 76 kg Last Vital Signs Temp 36.3 C L 08/13/21 08:22 Pulse 74 08/13/21 08:22 Resp 16 08/13/21 08:22 BP 169/86 H 08/13/21 08:22 Pulse Ox 96 08/13/21 08:22 O2 Del Method Room Air 08/13/21 08:22 Allergies Allergy/AdvReac Type Severity Reaction Status Date / Time Sulfa (Sulfonamide Allergy Unknown Pruritic Verified 08/13/21 08:15 Antibiotics) rash Home Medications Medication Instructions Recorded Confirmed Type cholecalciferol (vitamin D3) 50 4,000 unit PO DAILY 03/22/21 08/19/21 History mcg (2,000 unit) capsule alendronate 70 mg tablet 70 mg PO WEEKLY #12 tabs 04/23/21 08/19/21 Rx ondansetron 4 mg disintegrating 4 mg PO Q6H PRN nausea and 07/31/21 08/19/21 Rx tablet vomiting #10 tabs erythromycin 500 mg tablet 1 g PO .COMPLEX #6 tabs 08/01/21 08/13/21 Rx neomycin 500 mg tablet 1 g PO .COMPLEX #6 tabs 08/01/21 08/13/21 Rx levothyroxine 50 mcg tablet 50 mcg PO QAM 08/13/21 08/19/21 History polyethylene glycol 3350 17 17 g PO BID 08/13/21 08/13/21 History gram/dose oral powder (Miralax) Patient hx anesthesia problems: none Family hx anesthesia problems: none Results Review: All pre-operative results and documents have been reviewed as part of the pre-operative evaluation. [facility] Past Medical History Medical History Fracture of right humerus (~05/2018) Hyperlipidemia Mammogram normal (~06/20/19) Megacolon Osteopenia Took Fosamax [id number], 06/2019-present Dexa scan 06/2019 Osteoporosis Shingles (~10/2017) Skin cancer (~2008) Thyroid condition Vitamin D deficiency Surgical History Surgical History History of dilatation and curettage (~1974) Hx of colonoscopy (~07/16/17) Family History Family History Grandparent Cerebrovascular accident Family history of malignant neoplasm Diabetes mellitus Mother Family history of chronic obstructive pulmonary disease Father Family history of Alzheimer's disease Family history of heart disease in male family member before age 55 Patient's father is , Onset Age: 84 Hypertension Family history of cardiovascular disease Social History Social History Smoking status: Never smoker Second hand tobacco smoke exposure: No Alcohol intake: never Substance use: never Substance use type: does not use Living arrangements: alone Gender identity (if verbalized by the patient): Female Spiritual care concerns: No Anes - Eval Final PreProcedure Day of Procedure 08/19/21 06:45 Patient weight: overweight Heart: regular rate and rhythm Lungs: clear to auscultation Airway: Mallampati scale class II Neurological: alert and oriented Last oral intake: >/= 8 hours ASA classification: II Emergent: no Anesthetic plan: proceed Anesthesia type and monitoring: general ETT and standard monitoring Results Review: All pre-operative results and documents have been reviewed as part of the pre-operative evaluation. Informed Consent: The patient's anesthetic plan and its attendant risks and benefits were discussed with the patient/family/POA. Questions were solicited and answers provided to the satisfaction of the patient/family/POA.
[2021-08-19] MEDS: FAMOTIDINE 20 MG/2 ML VIAL IV PUSH (06:58)
[2021-08-19] MEDS: ALVIMOPAN 12 MG CAPSULE PO ×2 (06:58→19:44)
[2021-08-19] MEDS: ONDANSETRON INJ 4 MG/2 ML VIAL IV PUSH (06:58)
--- NOTE | 2021-08-19 07:24 | WPDHPUPDATE1 ---
History and Physical Update Update Date/Time: 08/19/21 07:24 History and Physical has been reviewed, including an updated exam of the patient. There are changes in the patient's condition. The pt. has had a CT showing no signs of liver or other metastasis. Risks, benefits, and alternatives have been discussed and questions answered. Patient agrees to proceed with procedure.
[2021-08-19] MEDS: ceFAZolin 2 GM/D5W 50 ML 2 GM/50 ML BAG IVPB (07:34)
[2021-08-19] MEDS: metroNIDAZOLE 500 MG/ISO 100ML 500 MG/100 ML BAG 100 MG IVPB ×3 (08:18→23:14)
[2021-08-19] MEDS: ceFAZolin SODIUM 1 GM VIAL IV PUSH (12:51)
--- NOTE | 2021-08-19 13:33 | SUR.PHASEI ---
oral airway removed at 1333
--- NOTE | 2021-08-19 14:35 | W.PM.PROC2 ---
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 2. Functional megacolon) Procedure Performed Laparoscopic Extended Right Hemicolectomy with anastomosis Surgeon Dallas Kelsey MD Circular Knife Machine Cutter ERIK Becerra, OR 1st assist Anesthesia General Indications This patient is a pleasant 75-year-old white female who was recently seen in the office after she had a colonoscopy. The colonoscopy could not be completed because of her large dilated colon. However, at the extent of where Dr. Cedeno could get the scope the patient had a apparent adenocarcinoma. Biopsies convinced us that this was true. Therefore, she presents at this time for a extended right hemicolectomy to remove all of the dilated colon from the ileum/ileocecal valve to just beyond the site of the tumor. The tumor was marked with spot ink at the time of colonoscopy. Findings The patient had a very unusually distended right and transverse colon. Small bowel appeared fairly normal. We found the spot ink marking the colon and then subsequently the palpable tumor in the transverse colon just to the left of midline. It appeared that the colon beyond the point of resection up to the splenic flexure and down to about the mid sigmoid was also significantly dilated. Description of Procedure The patient was placed in the supine position on the Operating Room table with a footboard in place. Following this, after induction of adequate general endotracheal anesthesia by [facility] Anesthesia staff, we carefully clipped and prepped the abdomen. A # 18 fr. Chua catheter was inserted prior to prepping. An Jareth-gastric tube was inserted by anesthesia staff. Following this, the abdomen was widely draped and then time-out was performed confirming the patient, procedure, and site of surgery. Following this, a supra-umbilical vertical midline incision was made after injection local anesthetic. Starting just above the umbilicus and going slightly cephalad, a 2 cm. incision was made, which was carried down through the midline fascia and I carefully elevated it by placing 2 stay sutures of O Vicryl. The abdomen was entered under direct visualization, with scissors and splitting the peritoneum. With good vision, a Guerrero cannula was slid into place bluntly and secured with the 2 stay sutures. Following this, the abdomen was insufflated to 12 mmHg pressure of CO2 gas. It seemed to me that her abdominal wall was very lax from her chronic constipation. Therefore we decided to set the gas at a lower level. After inspecting the abdomen through this Guerrero cannula it appeared that we were be able to see well and that her abdomen is well distended with this level of CO2 pressure. We did not extend or increase the pressure throughout the surgery. Following this, we carefully placed 2 additional trocars, a 5 mm in the left lower abdomen, and a second one in the lower midline 3-4 cm above the pubic bone. Eventually, a third one was placed just to the left of the falciform ligament approximately 8 cm above the supraumbilical 12 mm port site. These were all placed under direct vision with the laparoscope. As we did this we noted that the abdominal wall was very lax. We carefully placed the 10 mm 0 degree scope and inspected the abdomen. The right and transverse colon was noted to be massively dilated. The omentum was covering most of the colon and small bowel. This was grasped and elevated up off the bowel towards the head. I then began dissection by carefully elevating the cecum, appendix, and the ileum, and we entered the retroperitoneum by carefully incising the peritoneal lining and coming underneath the cecum and ileum, rotating them cephalad, until we could see into the retroperitoneum and felt I could see the inferior side of the duodenum posterior to the right colon. The right ureter was
--- NOTE | 2021-08-19 16:02 | ADMGEN ---
This patient, Trinh Amin, was admitted to Medical Room 250-01. Patient/family oriented to hospital policies and general routines including ID bracelet, bed and alarms, visiting hours, pain management, procedures, bathroom and other care routines, personal items, smoking policy, room service/diet, and visiting hours. Information on how to activate the Rapid Response Team has been discussed. Patient/Family are encouraged to report perceived risks to care and to ask questions if they do not understand what they are told or what they should do.
[2021-08-19] MEDS: SODIUM CHLORIDE 0.9% IV 1,000 ML 50 ML IV CONT (21:38)
[2021-08-20] VITALS (7 sets, daily range): BP systolic 106–147; BP diastolic 51–67; PULSE 57–63; RESP 12–20; TEMP 36.3–36.7; O2SAT 92–98
--- NOTE | ~2021-08-20 | XR_ITS ---
EXAMINATION: XR abdomen/kub 1V DATE: 08/22/2021 05:56 INDICATION: Adynamic ileus. TECHNIQUE: A supine view of the abdomen on 3 radiographs was obtained. COMPARISON: CT abdomen and pelvis 08/21/2021 FINDINGS: There are dilated loops of small bowel. The colon is distended. There is free intraperitone al gas, consistent with recent surgery. The nasogastric tube tip is in the stomach. IMPRESSION: 1. Dilated small and large bowel, likely adynamic ileus. Reviewed, dictated and finalized at location A.
--- NOTE | ~2021-08-20 | CT_ITS ---
EXAMINATION: CT abdomen pelvis wo con DATE: 08/21/2021 17:13 INDICATION: Nausea and vomiting status post right hemicolectomy TECHNIQUE: Computed tomography (CT) of the abdomen and pelvis was performed without intravenous contr ast. The dose-length product (DLP) was 535.74 mGy-cm. Automated exposure control and iterative recons truction technique were employed. COMPARISON: 08/05/2021, 10/07/2020 FINDINGS: Minimal dependent atelectasis is present in the lung bases. The heart size is normal. There is a moderate amount of free intraperitoneal gas as well as gas in the abdominal wall, likely relate d to recent surgery. A trace right pleural effusion is present. Within the limitations of noncontrast examination, the spleen, pancreas, liver, gallbladder, and adrenal glands are unremarkable. The kidn eys are normal. There are changes of right hemicolectomy. There is persistent marked distention of th e transverse colon. There are multiple fluid-filled loops of mildly distended small bowel. No patholo gically enlarged abdominal or pelvic lymph nodes are identified. There is mild lumbar spondylosis. Ga s in the urinary bladder likely reflects recent catheterization. IMPRESSION: 1. Free intraperitoneal gas and gas in the abdominal wall, likely related to recent right hemicolecto my. 2. Fluid-filled, mildly dilated loops of small bowel, consistent with ileus versus obstruction. Reviewed, dictated and finalized at location A. IMPRESSION: 1. Free intraperitoneal gas and gas in the abdominal wall, likely related to re cent right hemicolectomy. 2. Fluid-filled, mildly dilated loops of small bowel, consistent with ileus chris christiano obstruction.
--- NOTE | ~2021-08-20 | XR_ITS ---
EXAM: XR abdomen NG/feed tube insert DATE: 08/21/2021 18:41 HISTORY: check NG placement . COMPARISON: CT abdomen pelvis, same date. FINDINGS: Left hemidiaphragm elevation. Multiple loops of dilated small bowel bowel in the upper abd omen. Free air. NG tube, tip and side port terminating over the stomach IMPRESSION: NG tube, in good position. Reviewed, dictated and finalized at location K. IMPRESSION: NG tube, in good position.
[2021-08-20 05:10] LABS: Basophils Percent Auto 0.1 % (0.2-1.2); Hematocrit 40.5 % (37.0-47.0); Hemoglobin 13.5 g/dL (12.0-15.0); Immature Granulocyte Absolute 0.06 K/mm3 (0.00-0.031); Immature Granulocyte Percent A 0.4 % (0-0.5); Lymphocytes Absolute Auto 0.76 K/mm3 (0.9-3.2); Lymphocytes Percent Auto 5.5 % (18.3-44.2); Mean Corpuscular HGB Conc 33.3 g/dl (32-36); Mean Corpuscular Hemoglobin 30.8 pg (26-34); Mean Corpuscular Volume 92.3 fl (80-100); Monocytes Absolute Auto 0.8 K/mm3 (0.1-0.6); Monocytes Percent Auto 5.4 % (2.6-8.5); Neutrophils Absolute Auto 12.2 K/mm3 (1.3-6.7); Neutrophils Percent Auto 88.6 % (45.5-73.1); Platelet Count Result 147 k/mm3 (150-375); Red Blood Count 4.39 M/mm3 (4.2-5.4); Red Cell Distribution Width 13.2 % (11.5-14.5); White Blood Count 13.8 K/mm3 (4.5-10.0)
[2021-08-20] MEDS: MORPHINE SULFATE (*CRX) 2 MG/ML INJ IV PUSH (05:14)
[2021-08-20] MEDS: LEVOTHYROXINE SODIUM 50 MCG TABLET PO (05:16)
[2021-08-20 05:23] LABS: Alanine Aminotransferase 15 U/L (6-35); Albumin Level 3.3 g/dL (3.5-5.1); Alkaline Phosphatase 47 U/L (38-126); Anion Gap 2 mmol/L (8-16); Aspartate Amino Transferase 23 U/L (14-36); Bilirubin,Total 0.5 mg/dL (0.2-1.3); Blood Urea Nitrogen 7 mg/dL (7-17); Calcium 7.3 mg/dL (8.4-10.2); Carbon Dioxide 27 mmol/L (22-30); Chloride 102 mmol/L (98-107); Estimated CRCL calculation 56 ml/min; Estimated Glomerular Filt Rate > 60; Glucose 151 mg/dL (65-110); Sodium 131 mmol/L (137-145)
[2021-08-20] MEDS: metroNIDAZOLE 500 MG/ISO 100ML 500 MG/100 ML BAG 100 MG IVPB (07:52)
[2021-08-20] MEDS: ALVIMOPAN 12 MG CAPSULE PO ×2 (08:00→18:53)
[2021-08-20] MEDS: ENOXAPARIN 40 MG/0.4 ML SYRINGE SUB-Q (08:01)
--- NOTE | 2021-08-20 10:13 | PM.PNGS ---
Progress Note: A&P Assessment and Plan (1) Colon adenocarcinoma: Code(s): C18.9 - Malignant neoplasm of colon, unspecified Status: Acute Assessment and Plan: Doing well postop day 1. Patient is not nauseated. Will advance to a clear liquid diet and she how she does. She is receiving the surgery Ensure supplements. Will check with the nurse to be sure she is also getting Entereg. (2) Hypothyroidism: Code(s): E03.9 - Hypothyroidism, unspecified Status: Acute Assessment and Plan: patient will receive her usual med with sip water. Subjective Subjective Date/Time Seen: 08/20/21 10:13 Post Op day: 1 Patient reports: no new complaints, no flatus, no bowel movement and other ( does not remember getting the Entereg) Review of Systems Review of Systems: All systems reviewed & are unremarkable except as noted in HPI and below Constitutional: Constitutional: Reports as per HPI, Denies chills and Denies fever(s) Cardiovascular: Cardiovascular: Denies chest pain and Denies dyspnea Respiratory: Respiratory: Reports no additional respiratory complaints and Denies dyspnea Gastrointestinal: Gastrointestinal: Reports as per HPI and Denies bloating Musculoskeletal: Musculoskeletal: Reports no additional musculoskeletal complaints Neurologic: Denies memory loss Psychiatric: Psychiatric: Denies anxiety and Denies memory loss Exam Const: General: cooperative, comfortable, alert and awake Orientation/consciousness: patient oriented x3 HENMT: Head: normal to inspection Mouth: Yes moist mucous membranes Eyes: Sclera: sclerae normal Pupils: Equal, round and reactive pupils present Neck: Neck: normal visual inspection and no JVD Chest: Chest palpation & inspection: normal inspection of the chest Resp: Effort & Inspection: normal respiratory effort Auscultation: clear to auscultation bilaterally Cardio: Jugular venous distension: no JVD Rate: regular rate GI: Inspection: incision ( Clean and dry with surgical glue in place.), obesity and no visible herniation Auscultation: Hypoactive bowel sounds present Neuro: General: patient oriented x3 Cranial nerves: Yes Equal, round and reactive pupils present Objective Data Vital Signs Vital Signs: Vital Signs - 24 hr 08/19/21 13:18 08/19/21 13:30 08/19/21 13:45 Temperature 36.2 C L Pulse Rate 77 77 62 Respiratory Rate 14 16 12 Blood Pressure 123/69 128/67 116/65 Pulse Oximetry 99 98 95 Oxygen Delivery Simple Face Mask Simple Face Mask Simple Face Mask Oxygen Flow Rate 8 8 8 08/19/21 14:00 08/19/21 14:15 08/19/21 14:30 Temperature Pulse Rate 72 72 67 Respiratory Rate 14 16 12 Blood Pressure 113/62 123/66 116/62 Pulse Oximetry 98 98 97 Oxygen Delivery Simple Face Mask Simple Face Mask Simple Face Mask Oxygen Flow Rate 8 8 8 08/19/21 14:45 08/19/21 15:00 08/19/21 15:15 Temperature Pulse Rate 73 79 77 Respiratory Rate 14 16 16 Blood Pressure 114/60 109/59 L 106/67 Pulse Oximetry 100 95 98 Oxygen Delivery Simple Face Mask Room Air Room Air Oxygen Flow Rate 8 08/19/21 15:38 08/19/21 16:04 08/19/21 16:07 Temperature 35.5 C L 35.7 C L Pulse Rate 75 69 Respiratory Rate 12 12 Blood Pressure 104/55 L 124/63 Pulse Oximetry 99 97 Oxygen Delivery Room Air Oxygen Flow Rate 08/19/21 16:35 08/19/21 20:13 08/19/21 22:50 Temperature 35.8 C L 36.2 C L 36.5 C Pulse Rate 77 84 83 Respiratory Rate 12 16 20 Blood Pressure 121/61 124/57 L 107/66 Pulse Oximetry 98 97 95 Oxygen Delivery Oxygen Flow Rate 08/20/21 03:04 08/20/21 08:20 Temperature 36.7 C 36.3 C L Pulse Rate 62 58 L Respiratory Rate 20 12 Blood Pressure 107/52 L 106/53 L Pulse Oximetry 92 94 Oxygen Delivery Oxygen Flow Rate Intake/Output Intake/Output: Intake & Output 08/17/21 08/18/21 08/19/21 08/20/21 23:59 23:59 23:59 23:59 Intake Total 550 100 Output Total 350 850 Balance 200 -750 Meds/
--- NOTE | 2021-08-20 11:56 | WPDANESPN ---
Anes - Prog Note Post-Op Date/Time: 08/20/21 11:56 Cardiovascular status: normal Airway patency: baseline Mental status: baseline Post-Op hydration status: normal Vital Signs: Last Vital Signs Temp 97.3 F L 08/20/21 08:20 Pulse 58 L 08/20/21 08:20 Resp 12 08/20/21 08:20 BP 106/53 L 08/20/21 08:20 Pulse Ox 94 08/20/21 08:20 O2 Del Method Room Air 08/20/21 08:00 O2 Flow Rate 8 08/19/21 14:45 Pain Score (VAS): 2 I/O: Intake & Output 08/19/21 08/20/21 08/20/21 23:59 07:59 15:59 Intake Total 300 100 Output Total 250 350 500 Balance 50 -250 -500 Laboratory Tests 08/20/21 05:03 08/20/21 05:03 08/20/21 08/20/21 05:03 05:03 WBC 13.8 H RBC 4.39 Hgb 13.5 Hct 40.5 MCV 92.3 MCH 30.8 MCHC 33.3 RDW 13.2 Plt Count 147 L MPV 11.0 H Immature Gran % (Auto) 0.4 Neut % (Auto) 88.6 H Lymph % (Auto) 5.5 L Carbon % (Auto) 5.4 Eos % (Auto) 0.0 Baso % (Auto) 0.1 L Lymph # (Auto) 0.76 L Carbon # (Auto) 0.8 H Eos # (Auto) 0.0 Baso # (Auto) 0.0 Abs Immat Gran (auto) 0.06 H Absolute Neuts (auto) 12.2 H Absolute Nucleated RBC 0.0 Nucleated RBC % 0.0 Sodium 131 L Potassium 4.0 Chloride 102 Carbon Dioxide 27 Anion Gap 2 L BUN 7 D Creatinine 0.80 Estim Creat Clear Calc 56 Estimated GFR > 60 Glucose 151 H Calcium 7.3 L Total Bilirubin 0.5 AST 23 ALT 15 Alkaline Phosphatase 47 Total Protein 6.0 L Albumin 3.3 L Post-procedural complaints: none Patient Feedback: Patient satisfied with anesthetic care.
[2021-08-20] MEDS: HYDROcodone/acetaminophen (*CRX) 5-325 MG TABLET 1 TAB PO (13:47)
[2021-08-20] MEDS: HYDROcodone/acetaminophen (*CRX) 7.5-325 MG TABLET 1 TAB PO (21:08)
[2021-08-21 03:51] VITALS: BP 105/59; PULSE 61; RESP 16; TEMP 36.4; O2SAT 95
[2021-08-21 05:09] LABS: Hematocrit 39.7 % (37.0-47.0); Hemoglobin 13.5 g/dL (12.0-15.0); Mean Corpuscular Hemoglobin 31.3 pg (26-34); Mean Corpuscular Volume 92.1 fl (80-100); Mean Platelet Volume 11.5 fl (7.4-10.4); Platelet Count Result 142 k/mm3 (150-375); Red Blood Count 4.31 M/mm3 (4.2-5.4); Red Cell Distribution Width 13.5 % (11.5-14.5)
[2021-08-21 05:23] LABS: Anion Gap 0 mmol/L (8-16); Blood Urea Nitrogen 11 mg/dL (7-17); Calcium 7.6 mg/dL (8.4-10.2); Carbon Dioxide 31 mmol/L (22-30); Chloride 105 mmol/L (98-107); Estimated CRCL calculation 56 ml/min; Estimated Glomerular Filt Rate > 60; Glucose 93 mg/dL (65-110); Potassium 3.7 mmol/L (3.4-5.0); Sodium 136 mmol/L (137-145)
[2021-08-21] MEDS: LEVOTHYROXINE SODIUM 50 MCG TABLET PO (05:36)
[2021-08-21] MEDS: ALVIMOPAN 12 MG CAPSULE PO (05:36)
[2021-08-21] MEDS: ENOXAPARIN 40 MG/0.4 ML SYRINGE SUB-Q (09:18)
[2021-08-21] MEDS: HYDROcodone/acetaminophen (*CRX) 5-325 MG TABLET 1 TAB PO (09:25)
[2021-08-21 10:16] VITALS: BP 116/54; PULSE 67; RESP 16; TEMP 36.3; O2SAT 94
--- NOTE | 2021-08-21 11:37 | PM.PNGS ---
Progress Note: A&P Assessment and Plan (1) Colon adenocarcinoma: Code(s): C18.9 - Malignant neoplasm of colon, unspecified Status: Acute Assessment and Plan: await ROBF, small, watery BM yest, no flatus, cont clears, encourage OOB/IS Subjective Subjective Date/Time Seen: 08/21/21 11:37 c/o some nausea, bloating, belching Review of Systems Review of Systems: All systems reviewed & are unremarkable except as noted in HPI and below Exam Const: General: cooperative, comfortable and no acute distress Resp: Auscultation: clear to auscultation bilaterally Cardio: Rate: regular rate Rhythm: regular rhythm GI: Inspection: normal to inspection, distended and incision GI Palp: No abdominal tenderness, Yes Soft to palpation, No Tenderness to palpation present (GI), No Guarding due to palpation present (GI) and No Rigid due to palpation Objective Data Vital Signs Vital Signs: Vital Signs - 24 hr 08/20/21 15:30 08/20/21 18:54 08/20/21 20:39 Temperature 36.4 C L 36.3 C L 36.4 C Pulse Rate 60 58 L 61 Respiratory Rate 14 14 16 Blood Pressure 119/58 L 147/63 H 133/67 Pulse Oximetry 98 98 98 Oxygen Delivery 08/20/21 23:24 08/21/21 03:51 08/21/21 09:20 Temperature 36.6 C 36.4 C Pulse Rate 57 L 61 Respiratory Rate 20 16 Blood Pressure 108/51 L 105/59 L Pulse Oximetry 96 95 Oxygen Delivery Room Air 08/21/21 10:16 Temperature 36.3 C L Pulse Rate 67 Respiratory Rate 16 Blood Pressure 116/54 L Pulse Oximetry 94 Oxygen Delivery Intake/Output Intake/Output: Intake & Output 08/18/21 08/19/21 08/20/21 08/21/21 23:59 23:59 23:59 23:59 Intake Total 550 1600 850 Output Total 350 1727 350 Balance 200 -127 500 Meds/Results Medications: Active Medications Generic Name Dose Route Start Last Admin Trade Name Freq PRN Reason Stop Dose Admin Acetaminophen 1,000 mg 08/19/21 21:13 08/19/21 21:36 Acetaminophen 500 Mg Tablet PO 1,000 mg Q6H PRN Administration Mild Pain (1-3) or Fever Hydrocodone Bitart/Acetaminophen 1 tab 08/19/21 13:30 08/21/21 09:25 Hydrocodone/Acetaminophen (*Crx) 5-325 Mg Tablet PO 1 tab Q6H PRN Administration Pain Rated 4-6 Hydrocodone Bitart/Acetaminophen 1 tab 08/19/21 13:30 08/20/21 21:08 Hydrocodone/Acetaminophen (*Crx) 7.5-325 Mg Tablet PO 1 tab Q6H PRN Administration Pain Rated 7-10 Alvimopan 12 mg 08/20/21 19:00 08/21/21 05:36 Alvimopan 12 Mg Capsule PO 12 mg Q12H REYNA Administration Enoxaparin Sodium 40 mg 08/20/21 09:00 08/21/21 09:18 Enoxaparin 40 Mg/0.4 Ml Syringe SUB-Q 40 mg DAILY REYNA Administration Sodium Chloride 1,000 mls @ 50 mls/hr 08/19/21 21:15 08/20/21 19:57 Normal Saline Iv IV CONT Not Given .Q20H REYNA Levothyroxine Sodium 50 mcg 08/20/21 06:30 08/21/21 05:36 Levothyroxine Sodium 50 Mcg Tablet PO 50 mcg DAILY@0630 REYNA Administration Morphine Sulfate 2 mg 08/19/21 13:25 08/20/21 05:14 Morphine Sulfate (*Crx) 2 Mg/Ml Inj IV PUSH 2 mg Q2H PRN Administration Pain Rated 4-6 Morphine Sulfate 4 mg 08/19/21 13:25 Morphine Sulfate (*Crx) 4 Mg/Ml Inj IV PUSH Q2H PRN Pain Rated 7-10 Naloxone HCl 0.1 mg 08/19/21 13:30 Naloxone Hcl 0.4 Mg/Ml Vial IV PUSH Q2M PRN Opiate Reversal Labs Labs: Laboratory Results - last 24 hr 08/21/21 08/21/21 04:46 04:46 WBC 10.0 RBC 4.31 Hgb 13.5 Hct 39.7 MCV 92.1 MCH 31.3 MCHC 34.0 RDW 13.5 Plt Count 142 L MPV 11.5 H Sodium 136 L Potassium 3.7 Chloride 105 Carbon Dioxide 31 H Anion Gap 0 L BUN 11 Creatinine 0.80 Estim Creat Clear Calc 56 Estimated GFR > 60 Glucose 93 Calcium 7.6 L Quality VTE Prophylaxis VTE prophylaxis: mechanical ordered and pharmacologic ordered
[2021-08-21] MEDS: ONDANSETRON INJ 4 MG/2 ML VIAL IV PUSH ×2 (15:24→22:46)
[2021-08-21] MEDS: SODIUM CHLORIDE 0.9% IV 1,000 ML 50 ML IV CONT (15:25)
[2021-08-21 16:26] VITALS: BP 132/74; PULSE 82; RESP 16; TEMP 36.3; O2SAT 94
[2021-08-21] MEDS: KCL 40 MEQ/D5/0.9% SOD CHL 1,000 ML 100 ML IV CONT (17:29)
--- NOTE | 2021-08-21 19:03 | PC.NURSE ---
Called Dr. Luna to update him and confirm that he had seen Ct results. Confirmed that NG was placed and Xray performed, suction applied per his orders on constant medium suction. notified him of 400 cc green output so far.
[2021-08-21 20:00] VITALS: PULSE 82; RESP 16; O2SAT 94
[2021-08-21 20:43] VITALS: BP 149/79; PULSE 77; RESP 16; TEMP 36.4; O2SAT 98
[2021-08-22 00:54] VITALS: BP 148/73; PULSE 74; RESP 20; TEMP 36.4; O2SAT 94
[2021-08-22] MEDS: KCL 40 MEQ/D5/0.9% SOD CHL 1,000 ML 100 ML IV CONT ×2 (04:21→14:30)
[2021-08-22] MEDS: ONDANSETRON INJ 4 MG/2 ML VIAL IV PUSH (04:30)
[2021-08-22 05:44] VITALS: BP 152/74; PULSE 66; RESP 20; TEMP 36.4; O2SAT 92
[2021-08-22] MEDS: ALVIMOPAN 12 MG CAPSULE PO (06:07)
[2021-08-22] MEDS: LEVOTHYROXINE SODIUM 50 MCG TABLET PO (06:07)
[2021-08-22 06:22] LABS: Hematocrit 47.1 % (37.0-47.0); Hemoglobin 15.2 g/dL (12.0-15.0); Mean Corpuscular HGB Conc 32.3 g/dl (32-36); Mean Corpuscular Hemoglobin 30.4 pg (26-34); Mean Corpuscular Volume 94.2 fl (80-100); Mean Platelet Volume 11.4 fl (7.4-10.4); Platelet Count Result 175 k/mm3 (150-375); Red Cell Distribution Width 13.8 % (11.5-14.5); White Blood Count 12.7 K/mm3 (4.5-10.0)
[2021-08-22 06:33] LABS: Anion Gap 4 mmol/L (8-16); Blood Urea Nitrogen 9 mg/dL (7-17); Calcium 7.9 mg/dL (8.4-10.2); Carbon Dioxide 29 mmol/L (22-30); Chloride 104 mmol/L (98-107); Estimated CRCL calculation 63 ml/min; Estimated Glomerular Filt Rate > 60; Glucose 162 mg/dL (65-110); Potassium 4.4 mmol/L (3.4-5.0); Sodium 137 mmol/L (137-145)
[2021-08-22] MEDS: ENOXAPARIN 40 MG/0.4 ML SYRINGE SUB-Q (09:09)
[2021-08-22 10:00] VITALS: BP 151/71; PULSE 69; RESP 19; TEMP 36.4; O2SAT 98
--- NOTE | 2021-08-22 11:51 | PM.PNGS ---
Progress Note: A&P Assessment and Plan (1) Colon adenocarcinoma: Code(s): C18.9 - Malignant neoplasm of colon, unspecified Status: Acute Assessment and Plan: postop ileus, seems to be resolving, pt is anxious so will leave NG today but encourage OOB/IS, hopefully can get NG out tomorrow Subjective Subjective Date/Time Seen: 08/22/21 11:52 had N/V and NG placed yesterday, since then she has had BM x 2 but still nauseous Review of Systems Review of Systems: All systems reviewed & are unremarkable except as noted in HPI and below Exam Const: General: cooperative, comfortable, alert, awake and Physically active Resp: Auscultation: clear to auscultation bilaterally Cardio: Rate: regular rate Rhythm: regular rhythm GI: Inspection: normal to inspection, distended and incision GI Palp: Yes abdominal tenderness, Yes Soft to palpation, Yes Tenderness to palpation present (GI), No Guarding due to palpation present (GI) and No Rigid due to palpation Objective Data Vital Signs Vital Signs: Vital Signs - 24 hr 08/21/21 16:26 08/21/21 20:00 08/21/21 20:43 Temperature 36.3 C L 36.4 C Pulse Rate 82 82 77 Respiratory Rate 16 16 16 Blood Pressure 132/74 149/79 H Pulse Oximetry 94 94 98 Oxygen Delivery Room Air 08/22/21 00:54 08/22/21 05:44 08/22/21 10:00 Temperature 36.4 C 36.4 C 36.4 C Pulse Rate 74 66 69 Respiratory Rate 20 20 19 Blood Pressure 148/73 H 152/74 H 151/71 H Pulse Oximetry 94 92 98 Oxygen Delivery Intake/Output Intake/Output: Intake & Output 08/19/21 08/20/21 08/21/21 08/22/21 23:59 23:59 23:59 23:59 Intake Total 550 1600 1090 1000 Output Total 350 1727 1200 200 Balance 200 -127 -110 800 Meds/Results Medications: Active Medications Generic Name Dose Route Start Last Admin Trade Name Freq PRN Reason Stop Dose Admin Acetaminophen 1,000 mg 08/19/21 21:13 08/19/21 21:36 Acetaminophen 500 Mg Tablet PO 1,000 mg Q6H PRN Administration Mild Pain (1-3) or Fever Hydrocodone Bitart/Acetaminophen 1 tab 08/19/21 13:30 08/21/21 09:25 Hydrocodone/Acetaminophen (*Crx) 5-325 Mg Tablet PO 1 tab Q6H PRN Administration Pain Rated 4-6 Hydrocodone Bitart/Acetaminophen 1 tab 08/19/21 13:30 08/20/21 21:08 Hydrocodone/Acetaminophen (*Crx) 7.5-325 Mg Tablet PO 1 tab Q6H PRN Administration Pain Rated 7-10 Alvimopan 12 mg 08/20/21 19:00 08/22/21 06:07 Alvimopan 12 Mg Capsule PO 12 mg Q12H REYNA Administration Enoxaparin Sodium 40 mg 08/20/21 09:00 08/22/21 09:09 Enoxaparin 40 Mg/0.4 Ml Syringe SUB-Q 40 mg DAILY REYNA Administration Potassium Chloride/Dextrose/Sod Cl 1,000 mls @ 100 mls/hr 08/21/21 18:00 08/22/21 04:21 Kcl 40 Meq/D5ns IV CONT 100 mls/hr .Q10H REYNA Administration Levothyroxine Sodium 50 mcg 08/20/21 06:30 08/22/21 06:07 Levothyroxine Sodium 50 Mcg Tablet PO 50 mcg DAILY@0630 REYNA Administration Morphine Sulfate 2 mg 08/19/21 13:25 08/20/21 05:14 Morphine Sulfate (*Crx) 2 Mg/Ml Inj IV PUSH 2 mg Q2H PRN Administration Pain Rated 4-6 Morphine Sulfate 4 mg 08/19/21 13:25 Morphine Sulfate (*Crx) 4 Mg/Ml Inj IV PUSH Q2H PRN Pain Rated 7-10 Naloxone HCl 0.1 mg 08/19/21 13:30 Naloxone Hcl 0.4 Mg/Ml Vial IV PUSH Q2M PRN Opiate Reversal Ondansetron HCl 4 mg 08/21/21 13:44 08/22/21 04:30 Ondansetron Inj 4 Mg/2 Ml Vial IV PUSH 4 mg Q4H PRN Administration Nausea And Vomiting Radiology Results: ITS Impressions Abdomen/Pelvis CT 08/21/21 17:16 IMPRESSION: 1. Free intraperitoneal gas and gas in the abdominal wall, likely related to recent right hemicolectomy. 2. Fluid-filled, mildly dilated loops of small bowel, consistent with ileus versus obstruction. Abdomen X-Ray 08/22/21 06:23 IMPRESSION: 1. Dilated small and large bowel, likely adynamic ileus. Labs Labs: Laboratory Results - last 24 hr 08/22
[2021-08-22 14:00] VITALS: BP 148/68; PULSE 66; RESP 18; TEMP 36.4; O2SAT 98
[2021-08-22 20:00] VITALS: PULSE 68; RESP 18; O2SAT 97
[2021-08-22 20:07] VITALS: BP 156/71; PULSE 68; RESP 18; TEMP 35.8; O2SAT 97
[2021-08-23] MEDS: KCL 40 MEQ/D5/0.9% SOD CHL 1,000 ML 100 ML IV CONT ×3 (00:05→19:46)
[2021-08-23 04:35] VITALS: BP 167/69; PULSE 67; RESP 18; TEMP 36.4; O2SAT 91
--- NOTE | 2021-08-23 08:24 | PM.PNGS ---
Progress Note: A&P Assessment and Plan (1) Colon adenocarcinoma: Code(s): C18.9 - Malignant neoplasm of colon, unspecified Status: Acute Assessment and Plan: path reviewed, postop ileus resolving, will try to clamp NG today, encourage OOB/IS Subjective Subjective Date/Time Seen: 08/23/21 08:24 multiple BMs yesterday, but still c nausea Review of Systems Review of Systems: All systems reviewed & are unremarkable except as noted in HPI and below Exam Const: General: cooperative, comfortable and no acute distress Resp: Auscultation: clear to auscultation bilaterally Cardio: Rate: regular rate Rhythm: regular rhythm GI: Inspection: normal to inspection, no edema, distended and incision GI Palp: Yes abdominal tenderness, Yes Soft to palpation and Yes Tenderness to palpation present (GI) Other: mild incisional tenderness, mild distension, incision looks good Objective Data Vital Signs Vital Signs: Vital Signs - 24 hr 08/22/21 10:00 08/22/21 09:10 08/22/21 14:00 Temperature 36.4 C 36.4 C Pulse Rate 69 66 Respiratory Rate 19 18 Blood Pressure 151/71 H 148/68 H Pulse Oximetry 98 98 Oxygen Delivery Room Air 08/22/21 20:07 08/22/21 20:00 08/23/21 04:35 Temperature 35.8 C L 36.4 C L Pulse Rate 68 68 67 Respiratory Rate 18 18 18 Blood Pressure 156/71 H 167/69 H Pulse Oximetry 97 97 91 Oxygen Delivery Room Air Intake/Output Intake/Output: Intake & Output 08/20/21 08/21/21 08/22/21 08/23/21 23:59 23:59 23:59 23:59 Intake Total 1600 1090 2000 1000 Output Total 1727 1200 1150 1000 Balance -127 -110 850 0 Meds/Results Medications: Active Medications Generic Name Dose Route Start Last Admin Trade Name Freq PRN Reason Stop Dose Admin Acetaminophen 1,000 mg 08/19/21 21:13 08/19/21 21:36 Acetaminophen 500 Mg Tablet PO 1,000 mg Q6H PRN Administration Mild Pain (1-3) or Fever Hydrocodone Bitart/Acetaminophen 1 tab 08/19/21 13:30 08/21/21 09:25 Hydrocodone/Acetaminophen (*Crx) 5-325 Mg Tablet PO 1 tab Q6H PRN Administration Pain Rated 4-6 Hydrocodone Bitart/Acetaminophen 1 tab 08/19/21 13:30 08/20/21 21:08 Hydrocodone/Acetaminophen (*Crx) 7.5-325 Mg Tablet PO 1 tab Q6H PRN Administration Pain Rated 7-10 Alvimopan 12 mg 08/20/21 19:00 08/23/21 00:06 Alvimopan 12 Mg Capsule PO Not Given Q12H [facility] Enoxaparin Sodium 40 mg 08/20/21 09:00 08/22/21 09:09 Enoxaparin 40 Mg/0.4 Ml Syringe SUB-Q 40 mg DAILY REYNA Administration Potassium Chloride/Dextrose/Sod Cl 1,000 mls @ 100 mls/hr 08/21/21 18:00 08/23/21 00:05 Kcl 40 Meq/D5ns IV CONT 100 mls/hr .Q10H REYNA Administration Levothyroxine Sodium 50 mcg 08/20/21 06:30 08/23/21 05:47 Levothyroxine Sodium 50 Mcg Tablet PO Not Given DAILY@0630 [facility] Morphine Sulfate 2 mg 08/19/21 13:25 08/20/21 05:14 Morphine Sulfate (*Crx) 2 Mg/Ml Inj IV PUSH 2 mg Q2H PRN Administration Pain Rated 4-6 Morphine Sulfate 4 mg 08/19/21 13:25 Morphine Sulfate (*Crx) 4 Mg/Ml Inj IV PUSH Q2H PRN Pain Rated 7-10 Naloxone HCl 0.1 mg 08/19/21 13:30 Naloxone Hcl 0.4 Mg/Ml Vial IV PUSH Q2M PRN Opiate Reversal Ondansetron HCl 4 mg 08/21/21 13:44 08/22/21 04:30 Ondansetron Inj 4 Mg/2 Ml Vial IV PUSH 4 mg Q4H PRN Administration Nausea And Vomiting Radiology Results: ITS Impressions Abdomen/Pelvis CT 08/21/21 17:16 IMPRESSION: 1. Free intraperitoneal gas and gas in the abdominal wall, likely related to recent right hemicolectomy. 2. Fluid-filled, mildly dilated loops of small bowel, consistent with ileus versus obstruction. Abdomen X-Ray 08/22/21 06:23 IMPRESSION: 1. Dilated small and large bowel, likely adynamic ileus. Quality VTE Prophylaxis VTE prophylaxis: mechanical ordered and pharmacologic ordered
[2021-08-23] MEDS: ALVIMOPAN 12 MG CAPSULE PO ×2 (09:00→19:48)
[2021-08-23] MEDS: ENOXAPARIN 40 MG/0.4 ML SYRINGE SUB-Q (09:00)
[2021-08-23] MEDS: ONDANSETRON INJ 4 MG/2 ML VIAL IV PUSH (09:00)
[2021-08-23 09:56] VITALS: BP 150/81; PULSE 63; RESP 16; TEMP 36.4; O2SAT 92
[2021-08-23 13:36] VITALS: BP 95/56; PULSE 90; RESP 16; TEMP 36.6; O2SAT 94
[2021-08-23] MEDS: PROMETHAZINE HCL 25 MG/ML AMPUL 12.5 MG IV PUSH (17:38)
[2021-08-23 19:03] VITALS: BP 149/60; PULSE 66; RESP 18; TEMP 37.2; O2SAT 92
[2021-08-24 03:52] VITALS: BP 150/63; PULSE 69; RESP 18; TEMP 36.6; O2SAT 96
[2021-08-24] MEDS: LEVOTHYROXINE SODIUM 50 MCG TABLET PO (05:49)
[2021-08-24] MEDS: KCL 40 MEQ/D5/0.9% SOD CHL 1,000 ML 100 ML IV CONT ×2 (05:49→15:51)
[2021-08-24] MEDS: ALVIMOPAN 12 MG CAPSULE PO ×2 (05:49→18:48)
[2021-08-24] MEDS: ENOXAPARIN 40 MG/0.4 ML SYRINGE SUB-Q (09:57)
[2021-08-24 14:00] VITALS: BP 146/56; PULSE 63; RESP 16; TEMP 36.3; O2SAT 93
--- NOTE | 2021-08-24 15:12 | PM.PNGS ---
Progress Note: A&P Assessment and Plan (1) Postoperative ileus: Code(s): K91.89 - Other postprocedural complications and disorders of digestive system; K56.7 - Ileus, unspecified Status: Acute Assessment and Plan: Await return of bowel function, continue NG Will give Milk of Mag today and start Reglan Increase activity (2) Colon adenocarcinoma: Code(s): C18.9 - Malignant neoplasm of colon, unspecified Status: Acute Subjective Subjective Date/Time Seen: 08/24/21 15:12 Interval history: No flatus or BM. Nausea resolved. Pain controlled. Exam GI: Inspection: incision (intact with glue) and other (mild distention) GI Palp: Yes Soft to palpation, Yes Tenderness to palpation present (GI) (minimal incisional) and No Guarding due to palpation present (GI) Objective Data Vital Signs Vital Signs: Vital Signs - 24 hr 08/23/21 19:03 08/24/21 03:52 08/24/21 09:55 Temperature 37.2 C 36.6 C Pulse Rate 66 69 Respiratory Rate 18 18 Blood Pressure 149/60 H 150/63 H Pulse Oximetry 92 96 Oxygen Delivery Room Air 08/24/21 14:00 Temperature 36.3 C L Pulse Rate 63 Respiratory Rate 16 Blood Pressure 146/56 H Pulse Oximetry 93 Oxygen Delivery Intake/Output Intake/Output: Intake & Output 08/21/21 08/22/21 08/23/21 08/24/21 23:59 23:59 23:59 23:59 Intake Total 1090 2000 3000 1000 Output Total 1200 1150 1400 650 Balance -720 030 9569 350 Meds/Results Medications: Active Medications Generic Name Dose Route Start Last Admin Trade Name Freq PRN Reason Stop Dose Admin Acetaminophen 1,000 mg 08/19/21 21:13 08/19/21 21:36 Acetaminophen 500 Mg Tablet PO 1,000 mg Q6H PRN Administration Mild Pain (1-3) or Fever Hydrocodone Bitart/Acetaminophen 1 tab 08/19/21 13:30 08/21/21 09:25 Hydrocodone/Acetaminophen (*Crx) 5-325 Mg Tablet PO 1 tab Q6H PRN Administration Pain Rated 4-6 Hydrocodone Bitart/Acetaminophen 1 tab 08/19/21 13:30 08/20/21 21:08 Hydrocodone/Acetaminophen (*Crx) 7.5-325 Mg Tablet PO 1 tab Q6H PRN Administration Pain Rated 7-10 Alvimopan 12 mg 08/20/21 19:00 08/24/21 05:49 Alvimopan 12 Mg Capsule PO 12 mg Q12H REYNA Administration Enoxaparin Sodium 40 mg 08/20/21 09:00 08/24/21 09:57 Enoxaparin 40 Mg/0.4 Ml Syringe SUB-Q 40 mg DAILY REYNA Administration Potassium Chloride/Dextrose/Sod Cl 1,000 mls @ 100 mls/hr 08/21/21 18:00 08/24/21 05:49 Kcl 40 Meq/D5ns IV CONT 100 mls/hr .Q10H REYNA Administration Levothyroxine Sodium 50 mcg 08/20/21 06:30 08/24/21 05:49 Levothyroxine Sodium 50 Mcg Tablet PO 50 mcg DAILY@0630 REYNA Administration Magnesium Hydroxide 30 ml 08/24/21 15:08 Magnesium Hydroxide Susp 30 Ml Udc FEED TUBE 08/24/21 15:09 ONCE ONE Metoclopramide HCl 10 mg 08/24/21 18:00 Metoclopramide Hcl Inj 10 Mg/2 Ml Vial IV PUSH Q6HR [facility] Morphine Sulfate 2 mg 08/19/21 13:25 08/20/21 05:14 Morphine Sulfate (*Crx) 2 Mg/Ml Inj IV PUSH 2 mg Q2H PRN Administration Pain Rated 4-6 Morphine Sulfate 4 mg 08/19/21 13:25 Morphine Sulfate (*Crx) 4 Mg/Ml Inj IV PUSH Q2H PRN Pain Rated 7-10 Naloxone HCl 0.1 mg 08/19/21 13:30 Naloxone Hcl 0.4 Mg/Ml Vial IV PUSH Q2M PRN Opiate Reversal Ondansetron HCl 4 mg 08/21/21 13:44 08/23/21 09:00 Ondansetron Inj 4 Mg/2 Ml Vial IV PUSH 4 mg Q4H PRN Administration Nausea And Vomiting Radiology Results: ITS Impressions Abdomen/Pelvis CT 08/21/21 17:16 IMPRESSION: 1. Free intraperitoneal gas and gas in the abdominal wall, likely related to recent right hemicolectomy. 2. Fluid-filled, mildly dilated loops of small bowel, consistent with ileus versus obstruction. Abdomen X-Ray 08/22/21 06:23 IMPRESSION: 1. Dilated small and large bowel, likely adynamic ileus. Quality VTE Prophylaxis VTE prophylaxis: mechanical ordered and pharmacologic ordere
[2021-08-24] MEDS: MAGNESIUM HYDROXIDE SUSP 30 ML UDC FEED TUBE (15:57)
[2021-08-24] MEDS: METOCLOPRAMIDE HCL INJ 10 MG/2 ML VIAL IV PUSH (18:05)
[2021-08-24 19:16] VITALS: BP 141/69; PULSE 64; RESP 16; TEMP 36.5; O2SAT 90
[2021-08-24] MEDS: HYDROcodone/acetaminophen (*CRX) 5-325 MG TABLET 1 TAB PO (20:04)
[2021-08-25] MEDS: METOCLOPRAMIDE HCL INJ 10 MG/2 ML VIAL IV PUSH ×5 (00:38→23:02)
[2021-08-25] MEDS: KCL 40 MEQ/D5/0.9% SOD CHL 1,000 ML 100 ML IV CONT ×3 (00:39→22:23)
[2021-08-25 03:55] VITALS: BP 125/85; PULSE 65; RESP 17; TEMP 36.1; O2SAT 94
[2021-08-25 05:34] LABS: Hematocrit 44.2 % (37.0-47.0); Hemoglobin 14.5 g/dL (12.0-15.0); Mean Corpuscular HGB Conc 32.8 g/dl (32-36); Mean Corpuscular Hemoglobin 30.4 pg (26-34); Mean Corpuscular Volume 92.7 fl (80-100); Mean Platelet Volume 10.4 fl (7.4-10.4); Platelet Count Result 174 k/mm3 (150-375); Red Blood Count 4.77 M/mm3 (4.2-5.4); Red Cell Distribution Width 13.5 % (11.5-14.5)
[2021-08-25 05:53] LABS: Anion Gap 0 mmol/L (8-16); Blood Urea Nitrogen 9 mg/dL (7-17); Calcium 7.8 mg/dL (8.4-10.2); Carbon Dioxide 31 mmol/L (22-30); Chloride 107 mmol/L (98-107); Estimated CRCL calculation 55 ml/min; Estimated Glomerular Filt Rate > 60; Glucose 113 mg/dL (65-110); Magnesium 2.2 mg/dL (1.6-2.3); Potassium 4.5 mmol/L (3.4-5.0); Sodium 138 mmol/L (137-145)
[2021-08-25] MEDS: ALVIMOPAN 12 MG CAPSULE PO ×2 (06:27→18:12)
[2021-08-25] MEDS: LEVOTHYROXINE SODIUM 50 MCG TABLET PO (06:27)
[2021-08-25 08:00] VITALS: PULSE 65; RESP 17; O2SAT 94
[2021-08-25] MEDS: ENOXAPARIN 40 MG/0.4 ML SYRINGE SUB-Q (08:02)
--- NOTE | 2021-08-25 09:25 | PM.PNGS ---
Progress Note: A&P Assessment and Plan (1) Postoperative ileus: Code(s): K91.89 - Other postprocedural complications and disorders of digestive system; K56.7 - Ileus, unspecified Status: Acute Assessment and Plan: Will try clamping NG tube today and starting clear liquids. Place back to low intermittent suction overnight. Increase activity. (2) Colon adenocarcinoma: Code(s): C18.9 - Malignant neoplasm of colon, unspecified Status: Acute Subjective Subjective Date/Time Seen: 08/25/21 09:25 Interval history: Had a large bowel movement this morning. Still complaining some occasional nausea. Not ambulating much. Exam GI: Inspection: incision (intact with glue) and other (mild distention) GI Palp: Yes Soft to palpation, Yes Tenderness to palpation present (GI) (minimal incisional) and No Guarding due to palpation present (GI) Auscultation: normal bowel sounds Objective Data Vital Signs Vital Signs: Vital Signs - 24 hr 08/24/21 09:55 08/24/21 14:00 08/24/21 19:16 Temperature 36.3 C L 36.5 C Pulse Rate 63 64 Respiratory Rate 16 16 Blood Pressure 146/56 H 141/69 H Pulse Oximetry 93 90 Oxygen Delivery Room Air 08/25/21 03:55 08/25/21 08:00 Temperature 36.1 C L Pulse Rate 65 65 Respiratory Rate 17 17 Blood Pressure 125/85 Pulse Oximetry 94 94 Oxygen Delivery Room Air Intake/Output Intake/Output: Intake & Output 08/22/21 08/23/21 08/24/21 08/25/21 23:59 23:59 23:59 23:59 Intake Total 2000 3000 2000 1000 Output Total 1150 1400 1250 0 Balance 850 6815 670 3383 Meds/Results Medications: Active Medications Generic Name Dose Route Start Last Admin Trade Name Freq PRN Reason Stop Dose Admin Acetaminophen 1,000 mg 08/19/21 21:13 08/19/21 21:36 Acetaminophen 500 Mg Tablet PO 1,000 mg Q6H PRN Administration Mild Pain (1-3) or Fever Hydrocodone Bitart/Acetaminophen 1 tab 08/19/21 13:30 08/24/21 20:04 Hydrocodone/Acetaminophen (*Crx) 5-325 Mg Tablet PO 1 tab Q6H PRN Administration Pain Rated 4-6 Hydrocodone Bitart/Acetaminophen 1 tab 08/19/21 13:30 08/20/21 21:08 Hydrocodone/Acetaminophen (*Crx) 7.5-325 Mg Tablet PO 1 tab Q6H PRN Administration Pain Rated 7-10 Alvimopan 12 mg 08/20/21 19:00 08/25/21 06:27 Alvimopan 12 Mg Capsule PO 12 mg Q12H REYNA Administration Enoxaparin Sodium 40 mg 08/20/21 09:00 08/25/21 08:02 Enoxaparin 40 Mg/0.4 Ml Syringe SUB-Q 40 mg DAILY REYNA Administration Potassium Chloride/Dextrose/Sod Cl 1,000 mls @ 100 mls/hr 08/21/21 18:00 08/25/21 00:39 Kcl 40 Meq/D5ns IV CONT 100 mls/hr .Q10H REYNA Administration Levothyroxine Sodium 50 mcg 08/20/21 06:30 08/25/21 06:27 Levothyroxine Sodium 50 Mcg Tablet PO 50 mcg DAILY@0630 REYNA Administration Metoclopramide HCl 10 mg 08/24/21 18:00 08/25/21 06:26 Metoclopramide Hcl Inj 10 Mg/2 Ml Vial IV PUSH 10 mg Q6HR REYNA Administration Morphine Sulfate 2 mg 08/19/21 13:25 08/20/21 05:14 Morphine Sulfate (*Crx) 2 Mg/Ml Inj IV PUSH 2 mg Q2H PRN Administration Pain Rated 4-6 Morphine Sulfate 4 mg 08/19/21 13:25 Morphine Sulfate (*Crx) 4 Mg/Ml Inj IV PUSH Q2H PRN Pain Rated 7-10 Naloxone HCl 0.1 mg 08/19/21 13:30 Naloxone Hcl 0.4 Mg/Ml Vial IV PUSH Q2M PRN Opiate Reversal Ondansetron HCl 4 mg 08/21/21 13:44 08/23/21 09:00 Ondansetron Inj 4 Mg/2 Ml Vial IV PUSH 4 mg Q4H PRN Administration Nausea And Vomiting Radiology Results: ITS Impressions Abdomen/Pelvis CT 08/21/21 17:16 IMPRESSION: 1. Free intraperitoneal gas and gas in the abdominal wall, likely related to recent right hemicolectomy. 2. Fluid-filled, mildly dilated loops of small bowel, consistent with ileus versus obstruction. Abdomen X-Ray 08/22/21 06:23 IMPRESSION: 1. Dilated small and large bowel, likely adynamic ileus. Labs Labs: Laboratory Results -
[2021-08-25] MEDS: ONDANSETRON INJ 4 MG/2 ML VIAL IV PUSH (10:54)
[2021-08-25 14:00] VITALS: BP 149/80; PULSE 67; RESP 16; TEMP 37.4; O2SAT 95
[2021-08-25 22:00] VITALS: BP 131/61; PULSE 64; RESP 18; TEMP 36.8; O2SAT 92
[2021-08-26 05:26] LABS: Hematocrit 41.2 % (37.0-47.0); Mean Corpuscular Hemoglobin 30.9 pg (26-34); Mean Corpuscular Volume 90.9 fl (80-100); Mean Platelet Volume 11.2 fl (7.4-10.4); Platelet Count Result 181 k/mm3 (150-375); Red Blood Count 4.53 M/mm3 (4.2-5.4); Red Cell Distribution Width 13.2 % (11.5-14.5); White Blood Count 9.4 K/mm3 (4.5-10.0)
[2021-08-26 05:43] LABS: Anion Gap 2 mmol/L (8-16); Blood Urea Nitrogen 6 mg/dL (7-17); Calcium 7.5 mg/dL (8.4-10.2); Carbon Dioxide 30 mmol/L (22-30); Chloride 102 mmol/L (98-107); Estimated CRCL calculation 62 ml/min; Estimated Glomerular Filt Rate > 60; Glucose 114 mg/dL (65-110); Potassium 3.7 mmol/L (3.4-5.0); Sodium 134 mmol/L (137-145)
[2021-08-26 05:58] VITALS: BP 152/65; PULSE 61; RESP 16; TEMP 36.6; O2SAT 95
[2021-08-26] MEDS: LEVOTHYROXINE SODIUM 50 MCG TABLET PO (06:02)
[2021-08-26] MEDS: METOCLOPRAMIDE HCL INJ 10 MG/2 ML VIAL IV PUSH ×4 (06:02→23:22)
[2021-08-26] MEDS: ALVIMOPAN 12 MG CAPSULE PO ×2 (06:02→18:23)
[2021-08-26] MEDS: KCL 40 MEQ/D5/0.9% SOD CHL 1,000 ML 100 ML IV CONT (09:12)
[2021-08-26] MEDS: ENOXAPARIN 40 MG/0.4 ML SYRINGE SUB-Q (09:12)
[2021-08-26 14:00] VITALS: BP 151/75; PULSE 65; RESP 16; TEMP 36.4; O2SAT 90
[2021-08-26] MEDS: BISACODYL 10 MG SUPPOSITORY RECTAL (14:10)
--- NOTE | 2021-08-26 16:20 | PM.PNGS ---
Progress Note: A&P Assessment and Plan (1) Postoperative ileus: Code(s): K91.89 - Other postprocedural complications and disorders of digestive system; K56.7 - Ileus, unspecified Status: Acute Assessment and Plan: Had a fair amount of NG output overnight and no BM yet today. Will continue with clamping routine for now and give a dulcolax suppository. Dr. Kelsey will re-evaluate later this afternoon and possibly remove NG if she continues to improve. Encouraged walking the halls and gradually increasing activity. Repeat labs tomorrow. Discussed pathology again today with the patient in detail. (2) Colon adenocarcinoma: Code(s): C18.9 - Malignant neoplasm of colon, unspecified Status: Acute Plan I have discussed the patient's case and plan of care with Dr. Kelsey. Subjective Subjective Date/Time Seen: 08/26/21 13:20 Post Op day: 7 Patient reports: no new complaints, tolerating liquids well and afebrile Interval history: This is a 75 yo F who presented on 08/19/21 for laparoscopic right extended hemicolectomy by Dr. Kelsey. Chart reviewed. She is seen and examined this afternoon. She reportedly tolerated the NG clamping trial yesterday well with no nausea or vomiting. She reports 3 liquid BMs yesterday and possibly one overnight. Denies flatus or BM yet today. She has been up walking in her room and walked a lap around the [place] earlier this morning. She denies nausea or bloating today. Per nursing, her NG has been clamped since 8:30 am and she has not had any issues. We hooked the NG up while in the room with less than 50 cc output at that time. There was 1,000 mL output documented from her NG overnight. No other complaints. Review of Systems Review of Systems: All systems reviewed & are unremarkable except as noted in HPI and below Exam Const: General: comfortable, no acute distress and alert Orientation/consciousness: patient oriented x3 Resp: Effort & Inspection: normal respiratory effort Auscultation: clear to auscultation bilaterally Cardio: Rate: regular rate Rhythm: regular rhythm GI: Inspection: incision (intact with glue, no drainage), obesity and other (mild distention) GI Palp: Yes Soft to palpation, Yes Tenderness to palpation present (GI) (minimal incisional tenderness) and No Guarding due to palpation present (GI) Auscultation: normal bowel sounds Neuro: General: moves all extremities and no focal motor deficits Extrem: General: no calf tenderness and no pedal edema Psych: Insight: Good insight present (Psych) Judgement: Good judgement present (Psych) Objective Data Vital Signs Vital Signs: Vital Signs - 24 hr 08/25/21 22:00 08/26/21 05:58 08/26/21 08:00 Temperature 98.2 F 97.8 F Pulse Rate 64 61 Respiratory Rate 18 16 Blood Pressure 131/61 152/65 H Pulse Oximetry 92 95 Oxygen Delivery Room Air Intake/Output Intake/Output: Intake & Output 08/23/21 08/24/21 08/25/21 08/26/21 23:59 23:59 23:59 23:59 Intake Total 3000 2000 3050 1150 Output Total 1400 1250 0 1000 Balance 7498 666 1035 150 Meds/Results Medications: Active Medications Generic Name Dose Route Start Last Admin Trade Name Freq PRN Reason Stop Dose Admin Acetaminophen 1,000 mg 08/19/21 21:13 08/19/21 21:36 Acetaminophen 500 Mg Tablet PO 1,000 mg Q6H PRN Administration Mild Pain (1-3) or Fever Hydrocodone Bitart/Acetaminophen 1 tab 08/19/21 13:30 08/24/21 20:04 Hydrocodone/Acetaminophen (*Crx) 5-325 Mg Tablet PO 1 tab Q6H PRN Administration Pain Rated 4-6 Hydrocodone Bitart/Acetaminophen 1 tab 08/19/21 13:30 08/20/21 21:08 Hydrocodone/Acetaminophen (*Crx) 7.5-325 Mg Tablet PO 1 tab Q6H PRN Administration Pain Rated 7-10 Alvimopan 12 mg 08/20/21 19:00 08/26/21 06:02 Alvimopan 12 Mg Capsule PO 12 mg Q12H REYNA Administration Enoxaparin Sodium 40 mg 08/20/21 09:00 08/26/21 09:12 Enoxaparin 40 Mg/0.4 Ml Syringe
[2021-08-26] MEDS: KCL 40 MEQ/D5/0.9% SOD CHL 1,000 ML 50 ML IV CONT ×2 (18:23→23:21)
[2021-08-26 22:00] VITALS: BP 140/59; PULSE 62; RESP 18; TEMP 36.3; O2SAT 96
[2021-08-27 06:00] VITALS: BP 137/64; PULSE 66; RESP 16; TEMP 36.3; O2SAT 94
[2021-08-27] MEDS: ALVIMOPAN 12 MG CAPSULE PO (06:09)
[2021-08-27] MEDS: LEVOTHYROXINE SODIUM 50 MCG TABLET PO (06:09)
[2021-08-27] MEDS: METOCLOPRAMIDE HCL INJ 10 MG/2 ML VIAL IV PUSH (06:09)
[2021-08-27 07:15] LABS: Anion Gap 5 mmol/L (8-16); Blood Urea Nitrogen 5 mg/dL (7-17); Calcium 7.7 mg/dL (8.4-10.2); Carbon Dioxide 26 mmol/L (22-30); Chloride 99 mmol/L (98-107); Estimated CRCL calculation 62 ml/min; Estimated Glomerular Filt Rate > 60; Glucose 100 mg/dL (65-110); Potassium 3.9 mmol/L (3.4-5.0); Sodium 130 mmol/L (137-145)
[2021-08-27] MEDS: ENOXAPARIN 40 MG/0.4 ML SYRINGE SUB-Q (09:23)
--- NOTE | 2021-08-27 11:41 | PCNWS ---
Weekly nutritional screen. Patient is tolerating current diet with adequate intake. No weight loss reported. Patient educated on low fiber/high fiber diet instructions. No further nutritional needs at this time.
[2021-08-27 14:00] VITALS: BP 143/78; PULSE 83; RESP 16; TEMP 36.2; O2SAT 98
--- NOTE | 2021-08-27 16:43 | PM.DS ---
DS: Admitting Diagnosis Discharge Date 08/27/2021 Admitting Diagnosis 1. Adenocarcinoma (mucinous) of the transverse colon 2. Long- standing megacolon DS: Discharge Diagnosis Discharge Diagnosis (1) Colon adenocarcinoma: Code(s): C18.9 - Malignant neoplasm of colon, unspecified Status: Acute Assessment and Plan: This was the main reason for her admission. She had a biopsy-proven mucinous adenocarcinoma of the transverse colon. At surgery this was found to be just to the left of midline within the mid transverse colon. Because of her long history of megacolon a complete extended right hemicolectomy was performed to remove some of the other abnormal colon which had not been ab;e to be under surveillance and also to hopefully help her begin to have a more normal bowel movement pattern after the surgery. Pathology was discussed with the patient prior to discharge which did show a T4 adenocarcinoma with 0/19 lymph nodes positive for tumor. However, pathologist commented that there may be abnormal mucosa at the transection line which would be consistent with serrated adenomatous type mucosa. (however the actual adenocarcinoma was 6 cm from the transection margin). This raises the question whether the lining of the remaining dilated colon may be abnormal. Therefore, will consider perhaps earlier than normal colonoscopy in 6 months or so with random biopsies in the dilated remaining colon which basically would be the distal transverse and descending colon. Will plan to have the patient seek consultation with Medical Oncology to see if further adjuvant chemotherapy is recommended in her situation once further testing is back on the tumor. (2) Megacolon: Code(s): K59.39 - Other megacolon Status: Chronic Assessment and Plan: More than half of the abnormal colon was removed with this procedure. (3) BMI 29.0-29.9,adult: Code(s): Z68.29 - Body mass index [BMI] 29.0-29.9, adult Status: Acute Assessment and Plan: Will encourage patient to bring BMI down toward 25 of possible with a low-fat diet (4) Hypothyroidism: Code(s): E03.9 - Hypothyroidism, unspecified Status: Acute Assessment and Plan: patient has been on her usual levothyroxine dose to through the hospitalization and will continue same at home. (5) Postoperative ileus: Code(s): K91.89 - Other postprocedural complications and disorders of digestive system; K56.7 - Ileus, unspecified Status: Acute Assessment and Plan: this was the main complicating factor after surgery but it was not all surprising in view of her history of megacolon. She required NG decompression on postop day 2. And then gradually with time she seemed to recover her usual bowel function and now she has been having a bowel movement every day for the last 3 days. DS: Summary Hospital Course Hospital Course: Patient was admitted for elective colon surgery. She had a biopsy-proven mucinous adenocarcinoma of the transverse colon. At surgery this was found to be just to the left of midline within the mid transverse colon. Because of her long history of megacolon a complete extended right hemicolectomy was performed to remove some of the other abnormal colon which had not been able to be under surveillance and also to hopefully help her begin to have more normal bowel movement pattern after the surgery. Pathology was discussed with the patient prior to discharge which did show a T for adenocarcinoma with 0/19 lymph nodes positive for tumor. However, pathologist commented that there may be abnormal mucosa at the transection line which would be consistent with serrated adenomatous type mucosa. This raises the question whether the lining of the remaining dilated colon may be abnormal. Therefore, will consider perhaps earlier than normal colonoscopy in 6 months or so with random biopsies in the dilated remaining colon which basical
== END 2021-08-27 17:05 | disposition home or self-care (01) | DRG 330 ==
LOC: ANHSURGERY 14:02 → ANH2MED 14:02
PROVIDERS: Nurse Practitioner Family; Surgery; Admitting Provider Surgery; PCP Family Medicine; Visit Provider Surgery
PROC: 0DTF4ZZ Resection of Right Large Intestine, Percutaneous Endoscopic Approach (ICD-10-PCS; CPT 44204; principal; 2021-08-19 07:30)
DX: C18.4 Malignant neoplasm of transverse colon (principal); K59.39 Other megacolon; K91.89 Other postprocedural complications and disorders of digestive system; K56.7 Ileus, unspecified; E66.3 Overweight; Z68.29 Body mass index [BMI] 29.0-29.9, adult; E03.9 Hypothyroidism, unspecified; E78.5 Hyperlipidemia, unspecified; M85.80 Other specified disorders of bone density and structure, unspecified site; M81.0 Age-related osteoporosis without current pathological fracture; E55.9 Vitamin D deficiency, unspecified; Z79.899 Other long term (current) drug therapy
CPT/HCPCS: 36415; 74018; 74176; 80048; 80053; 83735; 85025; 85027; 88307; 88309; A9270; J0690; J1100; J1170; J1650; J1885; J2250; J2270; J2405; J2550; J2704; J2710; J2765; J3010; J3480; J7030; J7120

== ENCOUNTER 2021-11-25 15:27 | Outpatient (CLI) | payer MEDICARE, SELFPAY ==
[2021-11-25 15:42] LABS: Basophils Absolute Auto 0.1 K/mm3 (0.0-0.1); Basophils Percent Auto 0.9 % (0.2-1.2); Eosinophils Absolute Auto 0.3 K/mm3 (0-0.3); Eosinophils Percent Auto 4.5 % (0-4.4); Hematocrit 47.1 % (37.0-47.0); Hemoglobin 15.3 g/dL (12.0-15.0); Immature Granulocyte Absolute 0.02 K/mm3 (0.00-0.031); Immature Granulocyte Percent A 0.3 % (0-0.5); Lymphocytes Absolute Auto 1.89 K/mm3 (0.9-3.2); Lymphocytes Percent Auto 28.5 % (18.3-44.2); Mean Corpuscular HGB Conc 32.5 g/dl (32-36); Mean Corpuscular Hemoglobin 30.7 pg (26-34); Mean Corpuscular Volume 94.6 fl (80-100); Mean Platelet Volume 10.9 fl (7.4-10.4); Monocytes Absolute Auto 0.6 K/mm3 (0.1-0.6); Monocytes Percent Auto 9.2 % (2.6-8.5); Neutrophils Absolute Auto 3.7 K/mm3 (1.3-6.7); Neutrophils Percent Auto 56.6 % (45.5-73.1); Platelet Count Result 188 k/mm3 (150-375); Red Blood Count 4.98 M/mm3 (4.2-5.4); Red Cell Distribution Width 14.1 % (11.5-14.5); White Blood Count 6.6 K/mm3 (4.5-10.0)
[2021-11-25 16:37] LABS: Alanine Aminotransferase 26 U/L (6-35); Albumin Level 4.4 g/dL (3.5-5.1); Alkaline Phosphatase 77 U/L (38-126); Anion Gap 10 mmol/L (8-16); Aspartate Amino Transferase 30 U/L (14-36); Bilirubin,Total 0.7 mg/dL (0.2-1.3); Blood Urea Nitrogen 18 mg/dL (7-17); Calcium 8.6 mg/dL (8.4-10.2); Carbon Dioxide 27 mmol/L (22-30); Chloride 103 mmol/L (98-107); Estimated Glomerular Filt Rate > 60; Glucose 86 mg/dL (65-110); Sodium 140 mmol/L (137-145)
[2021-11-25 17:07] LABS: Carcinoembryonic Antigen 2.9 ng/mL (0.0-3.0)
== END 2021-11-25 15:28 | disposition home or self-care (01) ==
LOC: ANHLAB 15:28
PROVIDERS: PCP Family Medicine; Visit Provider Internal Medicine Hematology & Oncology
DX: C18.4 Malignant neoplasm of transverse colon (principal)
CPT/HCPCS: 36415; 80053; 82378; 85025

== ENCOUNTER 2022-02-17 10:19 | Outpatient (CLI) | payer MEDICARE, SELFPAY ==
[2022-02-17 10:36] LABS: Basophils Absolute Auto 0.1 K/mm3 (0.0-0.1); Basophils Percent Auto 1.1 % (0.2-1.2); Eosinophils Absolute Auto 0.4 K/mm3 (0-0.3); Eosinophils Percent Auto 6.1 % (0-4.4); Hematocrit 47.2 % (37.0-47.0); Hemoglobin 15.8 g/dL (12.0-15.0); Immature Granulocyte Absolute 0.03 K/mm3 (0.00-0.031); Immature Granulocyte Percent A 0.5 % (0-0.5); Lymphocytes Percent Auto 29.1 % (18.3-44.2); Mean Corpuscular HGB Conc 33.5 g/dl (32-36); Mean Corpuscular Hemoglobin 31.2 pg (26-34); Mean Corpuscular Volume 93.3 fl (80-100); Mean Platelet Volume 11.3 fl (7.4-10.4); Monocytes Absolute Auto 0.5 K/mm3 (0.1-0.6); Monocytes Percent Auto 7.3 % (2.6-8.5); Neutrophils Absolute Auto 3.5 K/mm3 (1.3-6.7); Neutrophils Percent Auto 55.9 % (45.5-73.1); Platelet Count Result 179 k/mm3 (150-375); Red Blood Count 5.06 M/mm3 (4.2-5.4); Red Cell Distribution Width 13.6 % (11.5-14.5); White Blood Count 6.2 K/mm3 (4.5-10.0)
[2022-02-17 12:01] LABS: Cholesterol 242 mg/dL (0-200); HDL Direct 54 mg/dL; Triglycerides 176 mg/dL (<150)
[2022-02-17 12:11] LABS: LDL Cholesterol Direct 122 mg/dL
[2022-02-17 12:17] LABS: Alanine Aminotransferase 23 U/L (6-35); Albumin Level 4.6 g/dL (3.5-5.1); Alkaline Phosphatase 65 U/L (38-126); Anion Gap 8 mmol/L (8-16); Aspartate Amino Transferase 30 U/L (14-36); Bilirubin,Total 1.2 mg/dL (0.2-1.3); Blood Urea Nitrogen 16 mg/dL (7-17); Calcium 8.8 mg/dL (8.4-10.2); Carbon Dioxide 29 mmol/L (22-30); Chloride 103 mmol/L (98-107); Estimated Glomerular Filt Rate > 60; Glucose 94 mg/dL (65-110); Sodium 140 mmol/L (137-145); Vitamin D 25 Hydroxy 35.4 ng/mL
[2022-02-17 12:47] LABS: Carcinoembryonic Antigen 3.1 ng/mL (0.0-3.0)
== END 2022-02-17 10:20 | disposition home or self-care (01) ==
LOC: ANHLAB 10:21
PROVIDERS: Nurse Practitioner Family; PCP Family Medicine; Visit Provider Internal Medicine Hematology & Oncology
DX: E03.9 Hypothyroidism, unspecified (principal); E55.9 Vitamin D deficiency, unspecified; E78.5 Hyperlipidemia, unspecified; C18.4 Malignant neoplasm of transverse colon
CPT/HCPCS: 36415; 80053; 80061; 82306; 82378; 84443; 85025

== ENCOUNTER 2022-02-25 09:08 | Outpatient (CLI) | payer MEDICARE, SELFPAY ==
--- NOTE | ~2022-02-25 | CT_ITS ---
CT Abdomen and Pelvis with contrast. History: Colon cancer. Spiral CT of the abdomen and pelvis was performed after the administration of intravenous contrast. 1 00 cc of Omnipaque 350 was administered intravenously without complication. Dose reduction technique was used on this scan by utilizing automated exposure control and iterative reconstruction technique. The dose-length product (DLP) was 491.23 mGy-cm. COMPARISON: 08/21/2021 Findings: Scans through the lung bases demonstrate mild atelectatic change. Probable prior left hepatic lobe resection. The liver, spleen, pancreas, gallbladder, adrenals and ki dneys are otherwise within normal limits. No evidence of aortic aneurysm. No lymphadenopathy is see n. Evidence of prior bowel resection, probable right partial colectomy. The residual transverse and desc ending colon are markedly distended, with a very large amount of stool at the distal descending colon . Sigmoid colon is decompressed, though no obstructing mass lesion clearly identified. Small bowel is nondilated. Images through the pelvis were performed. Urinary bladder unremarkable. No adnexal mass evident. No a scites is seen. Impression: Evidence of prior bowel surgery and suspected left hepatic lobe resection. Marked distention of the transverse and descending colon, with large amount of stool at the distal as cending colon. No definite obstructing mass lesion or volvulus evident. Correlate with the patient's symptomatology. Reviewed, dictated and finalized at [facility]. IST[facility]OWNER Impression: Evidence of prior bowel surgery and suspected left hepatic lobe resection. Marked distention of the transverse and descending colon, with large amount of stool at the distal ascending colon. No definite obstructing mass lesion or vol vulus evident. Correlate with the patient's symptomatology.
== END 2022-02-25 09:09 | disposition home or self-care (01) ==
PROVIDERS: PCP Family Medicine; Visit Provider Internal Medicine Hematology & Oncology
DX: C18.4 Malignant neoplasm of transverse colon (principal); Z98.890 Other specified postprocedural states
CPT/HCPCS: 74177; Q9967

== ENCOUNTER 2022-04-10 02:01 | Day surgery (SDC) | payer MEDICARE, SELFPAY ==
[2022-03-28 12:17] VITALS: BMI 28.3
[2022-04-10 10:05] VITALS: BP 143/83; PULSE 80; RESP 16; TEMP 36.5; O2SAT 98
--- NOTE | 2022-04-10 10:23 | WPDANESEPPF ---
Anes - Initial Pre Proc Eval Procedure: Operation Date: 04/10/22 10:30 Proposed Procedures p Colonoscopy - Hernan Cedeno MD Date/Time: 04/10/22 10:23 Surgeon: Hernan Cedeno MD Pre Op Diagnosis: colon ca Patient Data Age: 76 Gender: F Height: 1.63 m Weight: 75.8 kg Last Vital Signs Temp 36.5 C 04/10/22 10:05 Pulse 80 04/10/22 10:05 Resp 16 04/10/22 10:05 BP 143/83 H 04/10/22 10:05 Pulse Ox 98 04/10/22 10:05 O2 Del Method Room Air 04/10/22 10:05 Allergies Allergy/AdvReac Type Severity Reaction Status Date / Time Sulfa (Sulfonamide Allergy Unknown Pruritic Verified 04/10/22 09:59 Antibiotics) rash Home Medications Medication Instructions Recorded Confirmed Type cholecalciferol (vitamin D3) 50 4,000 unit PO DAILY 03/22/21 04/10/22 History mcg (2,000 unit) capsule levothyroxine 50 mcg tablet 50 mcg PO QAM #90 tabs 12/27/21 04/10/22 Rx psyllium husk (aspartame) 3.4 gram 1 packet PO DAILY 01/27/22 04/10/22 History oral powder packet (Metamucil Fiber Singles) alendronate 70 mg tablet 70 mg PO WEEKLY #12 tabs 03/24/22 04/10/22 Rx sodium,potassium,mag sulfates 17.5 See Rx Instructions PO .COMPLEX 03/27/22 04/10/22 Rx gram-3.13 gram-1.6 gram oral soln #354 mL (Suprep Bowel Prep Kit) Patient hx anesthesia problems: none Family hx anesthesia problems: none Results Review: All pre-operative results and documents have been reviewed as part of the pre-operative evaluation. [facility] Past Medical History Medical History Fracture of right humerus (~05/2018) Hyperlipidemia Mammogram normal (~06/20/19) Megacolon Nausea Osteopenia Took Fosamax [id number], 06/2019-present Dexa scan 06/2019 Osteoporosis Sessile colonic polyp distal colonic margin on path 07/2021 Shingles (~10/2017) Skin cancer (~2008) Thyroid condition Vitamin D deficiency Surgical History Surgical History History of dilatation and curettage (~1974) History of partial surgical removal of colon Hx of colonoscopy (~07/16/17) Hx of right hemicolectomy laparoscopic extended right hemicolectomy with anastomosis on 08/19/21 Family History Family History Grandparent Cerebrovascular accident Family history of malignant neoplasm Diabetes mellitus Mother Family history of chronic obstructive pulmonary disease Father Family history of Alzheimer's disease Family history of heart disease in male family member before age 55 Patient's father is , Onset Age: 84 Hypertension Family history of cardiovascular disease Social History Social History Smoking status: Never smoker Second hand tobacco smoke exposure: No Alcohol intake: never Alcohol use details: rarely Substance use: never Substance use type: does not use Lack of Transportation: No Lack of Food: Never True Current Housing: I Have Housing Concerned About Future Housing: No Difficulty Paying Gas/Electric Bills: No Difficulty Paying for Meds: No Currently Unemployed: No Education: Trade/Vocational Certificate Difficulty w/ Childcare or Family Care: No Living arrangements: alone Occupation/Education: retired Gender identity (if verbalized by the patient): Female Spiritual care concerns: No Agree to blood products: Yes Anes - Eval Final PreProcedure Day of Procedure 04/10/22 10:23 Patient weight: overweight Heart: regular rate and rhythm Lungs: clear to auscultation Airway: Mallampati scale class II Neurological: alert and oriented Last oral intake: >/= 8 hours ASA classification: III Emergent: no Anesthetic plan: proceed Anesthesia type and monitoring: general GIVS and standard monitoring Results Review: All pre-operative results and doc
--- NOTE | 2022-04-10 10:33 | PM.HPGS ---
History of Present Illness History of Present Illness Consent: Risks, benefits, and alternatives have been discussed and questions answered. Patient agrees to proceed with procedure. Chief complaint: colon ca Narrative: Trinh Amin is a 76 year old female Presents for screening colonoscopy. Patient found to have a carcinoma in the transverse colon 1 year ago. This subsequently was resected. Patient presents today for follow-up exam 1 year later. Patient has a history of chronic constipation and megacolon. She states her bowel habits have improved dramatically after colon resection. Bowel habits are much more regular. She has no bleeding or weight has remained stable. Review of Systems Review of Systems: Review of systems noncontributory. [facility] Past Medical History Medical History Fracture of right humerus (~05/2018) Hyperlipidemia Mammogram normal (~06/20/19) Megacolon Nausea Osteopenia Took Fosamax [id number], 06/2019-present Dexa scan 06/2019 Osteoporosis Sessile colonic polyp distal colonic margin on path 07/2021 Shingles (~10/2017) Skin cancer (~2008) Thyroid condition Vitamin D deficiency Surgical History Surgical History History of dilatation and curettage (~1974) History of partial surgical removal of colon Hx of colonoscopy (~07/16/17) Hx of right hemicolectomy laparoscopic extended right hemicolectomy with anastomosis on 08/19/21 Family History Family History Grandparent Cerebrovascular accident Family history of malignant neoplasm Diabetes mellitus Mother Family history of chronic obstructive pulmonary disease Father Family history of Alzheimer's disease Family history of heart disease in male family member before age 55 Patient's father is , Onset Age: 84 Hypertension Family history of cardiovascular disease Social History Social History Smoking status: Never smoker Second hand tobacco smoke exposure: No Alcohol intake: never Alcohol use details: rarely Substance use: never Substance use type: does not use Lack of Transportation: No Lack of Food: Never True Current Housing: I Have Housing Concerned About Future Housing: No Difficulty Paying Gas/Electric Bills: No Difficulty Paying for Meds: No Currently Unemployed: No Education: Trade/Vocational Certificate Difficulty w/ Childcare or Family Care: No Living arrangements: alone Occupation/Education: retired Gender identity (if verbalized by the patient): Female Spiritual care concerns: No Agree to blood products: Yes Meds Home Medications and Allergies Home Medications Medication Instructions Recorded Confirmed Type cholecalciferol (vitamin D3) 50 4,000 unit PO DAILY 03/22/21 04/10/22 History mcg (2,000 unit) capsule levothyroxine 50 mcg tablet 50 mcg PO QAM #90 tabs 12/27/21 04/10/22 Rx psyllium husk (aspartame) 3.4 gram 1 packet PO DAILY 01/27/22 04/10/22 History oral powder packet (Metamucil Fiber Singles) alendronate 70 mg tablet 70 mg PO WEEKLY #12 tabs 03/24/22 04/10/22 Rx sodium,potassium,mag sulfates 17.5 See Rx Instructions PO .COMPLEX 03/27/22 04/10/22 Rx gram-3.13 gram-1.6 gram oral soln #354 mL (Suprep Bowel Prep Kit) Allergies Allergy/AdvReac Type Severity Reaction Status Date / Time Sulfa (Sulfonamide Allergy Unknown Pruritic Verified 04/10/22 09:59 Antibiotics) rash Vital Signs Vital Signs - 24 hr 04/10/22 10:05 Temperature 97.7 F Pulse Rate 80 Respiratory Rate 16 Blood Pressure 143/83 H Pulse Oximetry 98 Oxygen Delivery Room Air Exam Narrative: Physical exam reveals patient be alert. Vital signs stable. HEENT exam is unremarkable. Patient is anicteric. Lungs are haven
[2022-04-10] MEDS: LACTATED RINGERS 1,000 ML 150 ML IV CONT (10:52)
[2022-04-10 10:53] VITALS: BP 113/69; PULSE 63; RESP 20; O2SAT 98
[2022-04-10 11:03] VITALS: BP 131/73; PULSE 68; RESP 20; O2SAT 99
[2022-04-10 11:13] VITALS: BP 142/72; PULSE 64; RESP 20; O2SAT 99
== END 2022-04-10 11:23 | disposition home or self-care (01) ==
PROVIDERS: PCP Family Medicine; Visit Provider Internal Medicine Gastroenterology
PROC: 0DJD8ZZ Inspection of Lower Intestinal Tract, Via Natural or Artificial Opening Endoscopic (ICD-10-PCS; CPT 45378; principal; 2022-04-10 10:30)
DX: Z08 Encounter for follow-up examination after completed treatment for malignant neoplasm (principal); K63.5 Polyp of colon; K64.8 Other hemorrhoids; Z85.038 Personal history of other malignant neoplasm of large intestine; Z98.0 Intestinal bypass and anastomosis status; Z90.49 Acquired absence of other specified parts of digestive tract; E78.5 Hyperlipidemia, unspecified; M85.80 Other specified disorders of bone density and structure, unspecified site; M81.0 Age-related osteoporosis without current pathological fracture; E55.9 Vitamin D deficiency, unspecified; E07.9 Disorder of thyroid, unspecified
CPT/HCPCS: 45385; 88305; J2704; J7120

== ENCOUNTER 2022-05-27 12:12 | Outpatient (CLI) | payer MEDICARE, SELFPAY ==
[2022-05-27 12:57] LABS: Basophils Absolute Auto 0.1 K/mm3 (0.0-0.1); Eosinophils Absolute Auto 0.3 K/mm3 (0-0.3); Eosinophils Percent Auto 4.5 % (0-4.4); Hematocrit 49.4 % (37.0-47.0); Hemoglobin 16.3 g/dL (12.0-15.0); Immature Granulocyte Absolute 0.03 K/mm3 (0.00-0.031); Immature Granulocyte Percent A 0.4 % (0-0.5); Lymphocytes Absolute Auto 1.49 K/mm3 (0.9-3.2); Lymphocytes Percent Auto 22.2 % (18.3-44.2); Mean Corpuscular Hemoglobin 31.2 pg (26-34); Mean Corpuscular Volume 94.5 fl (80-100); Mean Platelet Volume 11.6 fl (7.4-10.4); Monocytes Absolute Auto 0.5 K/mm3 (0.1-0.6); Monocytes Percent Auto 7.5 % (2.6-8.5); Neutrophils Absolute Auto 4.3 K/mm3 (1.3-6.7); Neutrophils Percent Auto 64.4 % (45.5-73.1); Platelet Count Result 186 k/mm3 (150-375); Red Blood Count 5.23 M/mm3 (4.2-5.4); Red Cell Distribution Width 13.2 % (11.5-14.5); White Blood Count 6.7 K/mm3 (4.5-10.0)
[2022-05-27 14:50] LABS: Alanine Aminotransferase 23 U/L (6-35); Albumin Level 4.6 g/dL (3.5-5.1); Alkaline Phosphatase 72 U/L (38-126); Anion Gap 6 mmol/L (8-16); Aspartate Amino Transferase 34 U/L (14-36); Bilirubin,Total 0.9 mg/dL (0.2-1.3); Blood Urea Nitrogen 15 mg/dL (7-17); Carbon Dioxide 32 mmol/L (22-30); Chloride 104 mmol/L (98-107); Estimated Glomerular Filt Rate > 60; Glucose 94 mg/dL (65-110); Potassium 4.5 mmol/L (3.4-5.0); Sodium 142 mmol/L (137-145)
[2022-05-27 15:30] LABS: Carcinoembryonic Antigen 3.4 ng/mL (0.0-3.0)
== END 2022-05-27 12:13 | disposition home or self-care (01) ==
LOC: ANHLAB 12:13
PROVIDERS: PCP Family Medicine; Visit Provider Internal Medicine Hematology & Oncology
DX: C18.4 Malignant neoplasm of transverse colon (principal)
CPT/HCPCS: 36415; 80053; 82378; 85025

== ENCOUNTER 2022-06-14 14:29 | Emergency (ER) | payer MEDICARE, SELFPAY ==
--- NOTE | ~2022-06-14 | XR_ITS ---
EXAMINATION: XR foot LT min 3V DATE: 06/14/2022 14:49 INDICATION: Left foot injury with bruising and swelling and pain to the third toe TECHNIQUE: Dorsoplantar, two oblique and lateral views of the left foot were obtained. COMPARISON: None. FINDINGS: Alignment is normal. No fracture. Mild polyarticular osteoarthritis at the first metatarsophalangeal and multiple tarsometatarsal and interphalangeal joints. Small Achilles and plantar calcaneal entheso phytes. Mild soft tissues of the dorsum of the forefoot. IMPRESSION: 1. Mild degenerative skeletal changes in the left foot. No acute osseous abnormality. Reviewed, dictated and finalized at location A. IMPRESSION: 1. Mild degenerative skeletal changes in the left foot. No acute osseous abnorm ality.
--- NOTE | 2022-06-14 14:36 | ED.LOWEXIN ---
HPI - Extremity Injury (Lower) General Chief Complaint: Extremity Injury, Lower Stated Complaint: Left Foot Pain Source: patient and RN notes reviewed History of Present Illness HPI Narrative: 76-year-old male presents to urgent care with complaints of left foot pain and swelling. Patient states this past Thursday or Thursday she fell on her left side while trying to get her pants on. Patient states her foot got caught causing her to fall. Denies any head injury or LOC. Denies any neck pain, chest pain, shortness of breath, abdominal pain. Patient has been taking Tylenol at home. Some parts of this dictation were generated by voice recognition software and may contain typographical and/or grammatical inaccuracies. Related Data Home Medications Medication Instructions Recorded Confirmed cholecalciferol (vitamin D3) 50 4,000 unit PO DAILY 03/22/21 06/14/22 mcg (2,000 unit) capsule psyllium husk (aspartame) 3.4 gram 1 packet PO DAILY 01/27/22 06/14/22 oral powder packet (Metamucil Fiber Singles) Allergies Allergy/AdvReac Type Severity Reaction Status Date / Time Sulfa (Sulfonamide Allergy Unknown Pruritic Verified 05/27/22 11:28 Antibiotics) rash Review of Systems Review of Systems: Pertinent positives and pertinent negatives per HPI. [facility] Past Medical History Medical History Fracture of right humerus (~05/2018) Hyperlipidemia Mammogram normal (~06/20/19) Megacolon Nausea Osteopenia Took Fosamax [id number], 06/2019-present Dexa scan 06/2019 Osteoporosis Sessile colonic polyp distal colonic margin on path 07/2021 Shingles (~10/2017) Skin cancer (~2008) Thyroid condition Vitamin D deficiency Surgical History Surgical History History of dilatation and curettage (~1974) History of partial surgical removal of colon Hx of colonoscopy (~07/16/17) Hx of right hemicolectomy laparoscopic extended right hemicolectomy with anastomosis on 08/19/21 Family History Family History Grandparent Cerebrovascular accident Family history of malignant neoplasm Diabetes mellitus Mother Family history of chronic obstructive pulmonary disease Father Family history of Alzheimer's disease Family history of heart disease in male family member before age 55 Patient's father is , Onset Age: 84 Hypertension Family history of cardiovascular disease Social History Social History Smoking status: Never smoker Second hand tobacco smoke exposure: No Alcohol intake: never Alcohol use details: rarely Substance use: never Substance use type: does not use Lack of Transportation: No Lack of Food: Never True Current Housing: I Have Housing Concerned About Future Housing: No Difficulty Paying Gas/Electric Bills: No Difficulty Paying for Meds: No Currently Unemployed: No Education: Trade/Vocational Certificate Difficulty w/ Childcare or Family Care: No Living arrangements: alone Occupation/Education: retired Gender identity (if verbalized by the patient): Female Spiritual care concerns: No Agree to blood products: Yes Comments At the time of my signature, I reviewed and agree with the nursing past medical, surgical, social, and family history. There is no relevant family history pertinent to the patient complaint. Exam Narrative: GENERAL: This is a well-nourished, well-developed patient, in no apparent distress. HEAD: normocephalic, atraumatic. EYES: Sclera clear/white. Vision is grossly intact. EARS: External ears normal, auditory canals clear and without drainage. Hearing grossly intact. NOSE: External nose normal with no obvious nasal discharge, nares without redness, no rhinorrhea. THROAT: Mucous membranes moist, posterior pharynx
[2022-06-14 14:41] VITALS: BP 144/79; PULSE 71; RESP 12; TEMP 36.5; O2SAT 100
== END 2022-06-14 15:25 | disposition home or self-care (01) ==
PROVIDERS: Emergency Provider Nurse Practitioner Family; PCP Family Medicine
DX: S93.602A Unspecified sprain of left foot, initial encounter (principal); W19.XXXA Unspecified fall, initial encounter; E78.5 Hyperlipidemia, unspecified; M85.80 Other specified disorders of bone density and structure, unspecified site; M81.0 Age-related osteoporosis without current pathological fracture; Z85.828 Personal history of other malignant neoplasm of skin; E55.9 Vitamin D deficiency, unspecified
CPT/HCPCS: 73630; 99213; G0463

== ENCOUNTER 2022-08-26 10:50 | Outpatient (CLI) | payer MEDICARE, SELFPAY ==
[2022-08-26 11:05] LABS: Basophils Absolute Auto 0.1 K/mm3 (0.0-0.1); Basophils Percent Auto 1.3 % (0.2-1.2); Eosinophils Absolute Auto 0.4 K/mm3 (0-0.3); Eosinophils Percent Auto 6.1 % (0-4.4); Hematocrit 47.8 % (37.0-47.0); Hemoglobin 15.8 g/dL (12.0-15.0); Immature Granulocyte Absolute 0.03 K/mm3 (0.00-0.031); Immature Granulocyte Percent A 0.5 % (0-0.5); Lymphocytes Absolute Auto 1.85 K/mm3 (0.9-3.2); Lymphocytes Percent Auto 29.8 % (18.3-44.2); Mean Corpuscular HGB Conc 33.1 g/dl (32-36); Mean Corpuscular Hemoglobin 30.9 pg (26-34); Mean Corpuscular Volume 93.5 fl (80-100); Mean Platelet Volume 11.4 fl (7.4-10.4); Monocytes Absolute Auto 0.5 K/mm3 (0.1-0.6); Monocytes Percent Auto 7.7 % (2.6-8.5); Neutrophils Absolute Auto 3.4 K/mm3 (1.3-6.7); Neutrophils Percent Auto 54.6 % (45.5-73.1); Platelet Count Result 173 k/mm3 (150-375); Red Blood Count 5.11 M/mm3 (4.2-5.4); Red Cell Distribution Width 12.9 % (11.5-14.5); White Blood Count 6.2 K/mm3 (4.5-10.0)
[2022-08-26 12:55] LABS: Cholesterol 212 mg/dL (0-200); HDL Direct 49 mg/dL; Triglycerides 169 mg/dL (<150)
[2022-08-26 13:04] LABS: Alanine Aminotransferase 21 U/L (6-35); Albumin Level 4.5 g/dL (3.5-5.1); Alkaline Phosphatase 65 U/L (38-126); Anion Gap 4 mmol/L (8-16); Aspartate Amino Transferase 27 U/L (14-36); Bilirubin,Total 0.9 mg/dL (0.2-1.3); Blood Urea Nitrogen 15 mg/dL (7-17); Carbon Dioxide 29 mmol/L (22-30); Chloride 105 mmol/L (98-107); Estimated Glomerular Filt Rate > 60; Glucose 92 mg/dL (65-110); Potassium 4.1 mmol/L (3.4-5.0); Sodium 138 mmol/L (137-145)
[2022-08-26 13:06] LABS: LDL Cholesterol Direct 126 mg/dL
[2022-08-26 13:28] LABS: Carcinoembryonic Antigen 3.1 ng/mL (0.0-3.0)
== END 2022-08-26 10:51 | disposition home or self-care (01) ==
LOC: ANHLAB 10:52
PROVIDERS: Nurse Practitioner Family; PCP Family Medicine; Visit Provider Internal Medicine Hematology & Oncology
DX: C18.4 Malignant neoplasm of transverse colon (principal); I10 Essential (primary) hypertension; E78.5 Hyperlipidemia, unspecified; E03.9 Hypothyroidism, unspecified
CPT/HCPCS: 36415; 80053; 80061; 82378; 84443; 85025

== ENCOUNTER 2022-11-15 08:33 | Outpatient (CLI) | payer MEDICARE, SELFPAY ==
--- NOTE | ~2022-11-15 | MM_ITS ---
EXAMINATION: MM screening george BI w rosalia HISTORY: Screening TECHNIQUE: Craniocaudal and mediolateral oblique 3-D tomosynthesis images were obtained and synthetic 2-D images were generated. CAD analysis was submitted and interpreted. COMPARISON: Comparison to multiple prior studies sequentially, with oldest reviewed study dated 06/16. BREAST PARENCHYMAL COMPOSITION: The breasts are extremely dense, which lowers the sensitivity of mamm ography FINDINGS: There is no evidence of suspicious mass, calcification, or architectural distortion to sugg est malignancy in either breast. There has been no suspicious interval change. IMPRESSION: 1. No mammographic evidence of malignancy. 2. Recommend routine screening mammography in one year. BI-RADS Category 1: Negative Reviewed, dictated and finalized at location A.
== END 2022-11-15 08:34 | disposition home or self-care (01) ==
PROVIDERS: PCP Family Medicine; Visit Provider Nurse Practitioner Family
DX: Z12.31 Encounter for screening mammogram for malignant neoplasm of breast (principal)
CPT/HCPCS: 77063; 77067

== ENCOUNTER 2023-01-02 10:30 | Outpatient (CLI) | payer MEDICARE, SELFPAY ==
[2023-01-02 10:43] LABS: Basophils Absolute Auto 0.1 K/mm3 (0.0-0.1); Eosinophils Absolute Auto 0.5 K/mm3 (0-0.3); Eosinophils Percent Auto 6.8 % (0-4.4); Hematocrit 50.3 % (37.0-47.0); Hemoglobin 16.5 g/dL (12.0-15.0); Immature Granulocyte Absolute 0.04 K/mm3 (0.00-0.031); Immature Granulocyte Percent A 0.6 % (0-0.5); Lymphocytes Absolute Auto 2.21 K/mm3 (0.9-3.2); Lymphocytes Percent Auto 32.7 % (18.3-44.2); Mean Corpuscular HGB Conc 32.8 g/dl (32-36); Mean Corpuscular Hemoglobin 30.9 pg (26-34); Mean Corpuscular Volume 94.2 fl (80-100); Mean Platelet Volume 11.2 fl (7.4-10.4); Monocytes Absolute Auto 0.5 K/mm3 (0.1-0.6); Neutrophils Absolute Auto 3.4 K/mm3 (1.3-6.7); Neutrophils Percent Auto 50.9 % (45.5-73.1); Platelet Count Result 191 k/mm3 (150-375); Red Blood Count 5.34 M/mm3 (4.2-5.4); Red Cell Distribution Width 13.5 % (11.5-14.5); White Blood Count 6.8 K/mm3 (4.5-10.0)
[2023-01-02 12:40] LABS: Alanine Aminotransferase 31 U/L (6-35); Albumin Level 4.5 g/dL (3.5-5.1); Alkaline Phosphatase 74 U/L (38-126); Anion Gap 7 mmol/L (8-16); Aspartate Amino Transferase 31 U/L (14-36); Bilirubin,Total 0.9 mg/dL (0.2-1.3); Blood Urea Nitrogen 12 mg/dL (7-17); Calcium 9.5 mg/dL (8.4-10.2); Carbon Dioxide 31 mmol/L (22-30); Chloride 100 mmol/L (98-107); Estimated Glomerular Filt Rate > 60; Glucose 99 mg/dL (65-110); Potassium 4.2 mmol/L (3.4-5.0); Sodium 138 mmol/L (137-145)
[2023-01-02 13:10] LABS: Carcinoembryonic Antigen 4.1 ng/mL (0.0-3.0)
== END 2023-01-02 10:31 | disposition home or self-care (01) ==
PROVIDERS: PCP Family Medicine; Visit Provider Internal Medicine Hematology & Oncology
DX: C18.4 Malignant neoplasm of transverse colon (principal)
CPT/HCPCS: 36415; 80053; 82378; 85025

== ENCOUNTER 2023-01-05 12:26 | Outpatient (CLI) | payer MEDICARE, SELFPAY ==
--- NOTE | ~2023-01-05 | CT_ITS ---
EXAMINATION: CT abdomen pelvis w con INDICATION: Abdominal pain, history of colon cancer TECHNIQUE: Computed tomographic images of the abdomen and pelvis were obtained after the administrati on of 100 cc of Omnipaque 350 intravenous contrast. The dose-length product (DLP) was 667.34 mGy-cm. Automated exposure control and iterative reconstruction technique were employed. COMPARISON: 02/25/2022 FINDINGS: Minimal dependent atelectasis is present in the lung bases. The heart size is normal. The l iver, spleen, pancreas, gallbladder, and adrenal glands are normal. The kidneys are unremarkable. No pathologically enlarged abdominal or pelvic lymph nodes are identified. No free intraperitoneal gas. There are changes of right hemicolectomy. There is chronic marked distention of the transverse colon. There is mild lumbar spondylosis. IMPRESSION: 1. Chronic marked distention of the transverse colon without significant change. Reviewed, dictated and finalized at location B. [employer]PRESENTAT[employer] IMPRESSION: 1. Chronic marked distention of the transverse colon without significant change .
== END 2023-01-05 12:27 | disposition home or self-care (01) ==
PROVIDERS: PCP Family Medicine; Visit Provider Internal Medicine Hematology & Oncology
DX: C18.4 Malignant neoplasm of transverse colon (principal)
CPT/HCPCS: 74177; Q9967

== ENCOUNTER 2023-04-27 09:05 | Outpatient (CLI) | payer MEDICARE, SELFPAY ==
[2023-04-27 09:23] LABS: Basophils Absolute Auto 0.1 K/mm3 (0.0-0.1); Basophils Percent Auto 1.4 % (0.2-1.2); Eosinophils Absolute Auto 0.5 K/mm3 (0-0.3); Eosinophils Percent Auto 6.9 % (0-4.4); Hematocrit 47.7 % (37.0-47.0); Hemoglobin 15.6 g/dL (12.0-15.0); Immature Granulocyte Absolute 0.03 K/mm3 (0.00-0.031); Immature Granulocyte Percent A 0.5 % (0-0.5); Mean Corpuscular HGB Conc 32.7 g/dl (32-36); Mean Corpuscular Volume 94.6 fl (80-100); Mean Platelet Volume 11.1 fl (7.4-10.4); Monocytes Absolute Auto 0.6 K/mm3 (0.1-0.6); Monocytes Percent Auto 8.6 % (2.6-8.5); Neutrophils Absolute Auto 3.7 K/mm3 (1.3-6.7); Neutrophils Percent Auto 56.6 % (45.5-73.1); Platelet Count Result 175 k/mm3 (150-375); Red Blood Count 5.04 M/mm3 (4.2-5.4); Red Cell Distribution Width 13.3 % (11.5-14.5); White Blood Count 6.5 K/mm3 (4.5-10.0)
[2023-04-27 10:18] LABS: Alanine Aminotransferase 25 U/L (6-35); Albumin Level 4.2 g/dL (3.5-5.1); Alkaline Phosphatase 66 U/L (38-126); Anion Gap 5 mmol/L (8-16); Aspartate Amino Transferase 28 U/L (14-36); Blood Urea Nitrogen 14 mg/dL (7-17); Calcium 9.5 mg/dL (8.4-10.2); Carbon Dioxide 30 mmol/L (22-30); Chloride 105 mmol/L (98-107); Estimated Glomerular Filt Rate > 60; Glucose 99 mg/dL (65-110); Potassium 4.3 mmol/L (3.4-5.0); Sodium 140 mmol/L (137-145)
[2023-04-27 10:48] LABS: Carcinoembryonic Antigen 3.3 ng/mL (0.0-3.0)
== END 2023-04-27 09:06 | disposition home or self-care (01) ==
LOC: ANHLAB 09:11
PROVIDERS: PCP Family Medicine; Visit Provider Internal Medicine Hematology & Oncology
DX: C18.4 Malignant neoplasm of transverse colon (principal)
CPT/HCPCS: 36415; 80053; 82378; 85025

== ENCOUNTER 2023-08-07 08:43 | Outpatient (CLI) | payer MEDICARE, SELFPAY ==
--- NOTE | ~2023-08-07 | CT_ITS ---
CT of the Abdomen and Pelvis: Indication: Colon cancer Technique: 2.5 mm axial scans were obtained through the abdomen and pelvis following intravenous adm inistration of 100 cc of Omnipaque 350. Dose reduction technique was used on this scan by utilizing a utomated exposure control and iterative reconstruction technique. The dose-length product (DLP) was 6 57.60 mGy-cm. COMPARISON: 01/05/2023 Findings: Scans through the lung bases are unremarkable. The liver, spleen, pancreas, gallbladder, adrenals and kidneys are within normal limits. There are at herosclerotic calcifications of the aorta. No lymphadenopathy. Marked air distention of the transverse colon is similar to prior exam. No definite obstructing mass seen. Small bowel nondistended. Images through the pelvis were performed. Urinary bladder unremarkable. No pelvic mass seen. No ascit es. Impression: No evidence for recurrent malignancy or metastatic disease. No change from prior exam. Stable marked air distention of the transverse colon. Reviewed, dictated and finalized at location . Impression: No evidence for recurrent malignancy or metastatic disease. No change from prio r exam. Stable marked air distention of the transverse colon.
[2023-08-07 09:03] LABS: Estimated Glomerular Filt Rate 48
== END 2023-08-07 08:44 | disposition home or self-care (01) ==
PROVIDERS: PCP Family Medicine; Visit Provider Nurse Practitioner Family
DX: C18.4 Malignant neoplasm of transverse colon (principal); K63.89 Other specified diseases of intestine
CPT/HCPCS: 74177; Q9967

== ENCOUNTER 2023-08-28 13:19 | Outpatient (CLI) | payer MEDICARE, SELFPAY ==
[2023-08-28 13:43] LABS: Basophils Absolute Auto 0.1 K/mm3 (0.0-0.1); Basophils Percent Auto 1.3 % (0.2-1.2); Eosinophils Absolute Auto 0.2 K/mm3 (0-0.3); Eosinophils Percent Auto 3.3 % (0-4.4); Hematocrit 48.2 % (37.0-47.0); Hemoglobin 16.2 g/dL (12.0-15.0); Immature Granulocyte Absolute 0.02 K/mm3 (0.00-0.031); Immature Granulocyte Percent A 0.3 % (0-0.5); Mean Corpuscular HGB Conc 33.6 g/dl (32-36); Mean Corpuscular Hemoglobin 31.2 pg (26-34); Mean Corpuscular Volume 92.7 fl (80-100); Mean Platelet Volume 11.2 fl (7.4-10.4); Monocytes Absolute Auto 0.4 K/mm3 (0.1-0.6); Monocytes Percent Auto 6.6 % (2.6-8.5); Neutrophils Absolute Auto 4.2 K/mm3 (1.3-6.7); Neutrophils Percent Auto 66.5 % (45.5-73.1); Platelet Count Result 178 k/mm3 (150-375); Red Cell Distribution Width 13.2 % (11.5-14.5); White Blood Count 6.4 K/mm3 (4.5-10.0)
[2023-08-28 15:58] LABS: Anion Gap 11 mmol/L (4-12); Blood Urea Nitrogen 13 mg/dL (7-17); Carbon Dioxide 24 mmol/L (22-30); Chloride 105 mmol/L (98-107); Estimated Glomerular Filt Rate > 60; Glucose 96 mg/dL (65-110); Sodium 140 mmol/L (137-145)
[2023-08-28 16:45] LABS: Hepatitis C Virus Antibody Negative (Negative)
[2023-08-28 16:55] LABS: Carcinoembryonic Antigen 3.3 ng/mL (0.0-3.0)
[2023-08-31 13:33] LABS: Vitamin D 1,25 (OH)2 Total 43 pg/mL (18-72); Vitamin D2 1,25 (OH)2 <8 pg/mL; Vitamin D3 1,25 (OH)2 43 pg/mL
== END 2023-08-28 13:20 | disposition home or self-care (01) ==
LOC: ANHLAB 13:21
PROVIDERS: Nurse Practitioner Family; PCP Family Medicine; Visit Provider Internal Medicine Hematology & Oncology
DX: Z11.59 Encounter for screening for other viral diseases (principal); C18.4 Malignant neoplasm of transverse colon; M81.0 Age-related osteoporosis without current pathological fracture; E78.5 Hyperlipidemia, unspecified; E03.9 Hypothyroidism, unspecified; K59.39 Other megacolon; E55.9 Vitamin D deficiency, unspecified; E53.8 Deficiency of other specified B group vitamins
CPT/HCPCS: 36415; 80048; 82378; 82607; 82652; 84443; 85025; 86803

== ENCOUNTER 2023-10-15 11:06 | Outpatient (CLI) | payer MEDICARE, SELFPAY ==
[2023-10-15 11:23] LABS: Basophils Absolute Auto 0.1 K/mm3 (0.0-0.1); Eosinophils Absolute Auto 0.3 K/mm3 (0-0.3); Immature Granulocyte Absolute 0.02 K/mm3 (0.00-0.031); Immature Granulocyte Percent A 0.3 % (0-0.5); Lymphocytes Absolute Auto 1.48 K/mm3 (0.9-3.2); Lymphocytes Percent Auto 25.3 % (18.3-44.2); Mean Corpuscular HGB Conc 33.3 g/dl (32-36); Mean Corpuscular Hemoglobin 31.3 pg (26-34); Mean Corpuscular Volume 93.9 fl (80-100); Mean Platelet Volume 11.2 fl (7.4-10.4); Monocytes Absolute Auto 0.5 K/mm3 (0.1-0.6); Monocytes Percent Auto 9.2 % (2.6-8.5); Neutrophils Absolute Auto 3.5 K/mm3 (1.3-6.7); Neutrophils Percent Auto 59.2 % (45.5-73.1); Platelet Count Result 169 k/mm3 (150-375); Red Blood Count 5.11 M/mm3 (4.2-5.4); Red Cell Distribution Width 13.3 % (11.5-14.5); White Blood Count 5.9 K/mm3 (4.5-10.0)
[2023-10-15 17:29] LABS: Anion Gap 10 mmol/L (4-12); Blood Urea Nitrogen 19 mg/dL (7-17); Calcium 8.9 mg/dL (8.4-10.2); Carbon Dioxide 29 mmol/L (22-30); Chloride 99 mmol/L (98-107); Estimated Glomerular Filt Rate 54; Glucose 89 mg/dL (65-110); Sodium 138 mmol/L (137-145)
[2023-10-15 17:53] LABS: Carcinoembryonic Antigen 3.8 ng/mL (0.0-3.0)
== END 2023-10-15 11:07 | disposition home or self-care (01) ==
PROVIDERS: Nurse Practitioner Family; PCP Family Medicine; Visit Provider Internal Medicine Hematology & Oncology
DX: C18.4 Malignant neoplasm of transverse colon (principal)
CPT/HCPCS: 36415; 80048; 82378; 85025

== ENCOUNTER 2023-12-03 15:25 | Outpatient (CLI) | payer MEDICARE, SELFPAY ==
--- NOTE | ~2023-12-03 | MM_ITS ---
EXAMINATION: MM screening george BI w rosalia HISTORY: Screening TECHNIQUE: Craniocaudal and mediolateral oblique 3-D tomosynthesis images were obtained and synthetic 2-D images were generated. CAD analysis was submitted and interpreted. COMPARISON: Comparison to multiple prior studies sequentially, with oldest reviewed study dated 06/16. BREAST PARENCHYMAL COMPOSITION: Dense: The breasts are heterogeneously dense, which may obscure small masses FINDINGS: There is no evidence of suspicious mass, calcification, or architectural distortion to sugg est malignancy in either breast. There has been no suspicious interval change. IMPRESSION: 1. No mammographic evidence of malignancy. 2. Recommend routine screening mammography in one year. BI-RADS Category 1: Negative Reviewed, dictated and finalized at location B.
== END 2023-12-03 15:26 | disposition home or self-care (01) ==
LOC: ANHIMG 15:26
PROVIDERS: PCP Family Medicine; Visit Provider Family Medicine
DX: Z12.31 Encounter for screening mammogram for malignant neoplasm of breast (principal)
CPT/HCPCS: 77063; 77067

== ENCOUNTER 2024-04-15 08:50 | Outpatient (CLI) | payer MEDICARE, SELFPAY ==
--- OUTSIDE RECORDS SUMMARY | 2024-04-15 08:53 | XMS_ITS | Clinical Summary ---
Author Organization [facility]eline [facility] Address [address] [facility] [place] [address] Care Team Providers Care Orthodontic Lab Technician Name Role Phone Kia Silva MD Primary Care Provider Allergies Active Allergy Reactions Criticality Noted Date Comments Sulfa (Sulfonamide Antibiotics) Rash Low 04/02 Medications alendronate (FOSAMAX) 70 mg tablet Take 70 mg by mouth every 7 days. empty stomach before other meds,with 8oz of water, stay upright 30 min Active levothyroxine 50 mcg tablet Take 50 mcg by mouth daily in the morning. Active cholecalciferol , vitamin D3, 5,000 unit Take 400 Units by mouth daily. Active triamcinolone acetonide (KENALOG) 0.1 % Cream APPLY TOPICALLY TWICE DAILY 3 Active Active Problems Problem Noted Date Diagnosed Date Malignant neoplasm of transverse colon 2 Family History Medical History Relation Name Comments Cancer Brother 1 Heart Disease Father Heart Disease Mother Cancer Sister 5 Relation Name Status Comments Brother 1 Alive Brother 2 Alive Father Mother Sister 1 Alive Sister 2 Alive Sister 3 Alive Sister 4 Alive Sister 5 Alive Sister 6 Alive Social History Tobacco Use Types Packs/Day Years Used Date Smoking Tobacco: Never Tobacco Cessation:Counseling Given: Not Answered Alcohol Use Standard Drinks/Week Comments Yes 0 (1 standard drink = 0.6 oz pur e alcohol) Comments No Sex and Gender Information Value Date Recorded Sex Assigned at Not on file Legal Sex Female 2:31 PM CDT Gender Identity Not on file Sexual Orientation Not on file Last Filed Vital Signs Vital Sign Reading Time Taken Comments Blood Pressure 139/81 10/16/2023 10:41 AM CDT Pulse 64 10/16/2023 10:41 AM CDT Temperature 36.4 C (97.5 F) 10/16/2023 10:41 AM CDT Respiratory Rate 15 10/16/2023 10:4 1 AM CDT Oxygen Saturation 93% 10/16/2023 10: 41 AM CDT Inhaled Oxygen Concentration - - Weight 79.7 kg (175 lb 12.8 oz) 024 10:41 AM CDT Height 162.6 cm (5' 4 ) 09/09/2021 3:06 PM CDT Body Mass Index 30.18 09/09/2021 3:06 PM CDT Plan of Treatment Upcoming Encounters Date Type Department Care Team (Late st Contact Info) Description 04/19/2024 11:30 AM TRAFFIC CHECKER Office Visit [facility] Oncology and Hematology [facility] [address] [facility] [address] [place] [address] Silvestre Escoto MD [address] [facility] [address] [place] [address] Health Maintenance Due Date Last Done Comments DTAP/TDAP/TD VACCINES (1 - Tdap) 1965 PNEUMOCOCCAL VACCINE 65+ YEA RS (1 of 1 - PCV) 1996 ZOSTER VACCINE (1 of 2) 1996 RSV VACCINE (60+ or ) (1 - 1-dose 75+ series) 2021 INFLUENZA VACCINE (#1) 2023 12/28/2010, 2009 [place]) Prev entative Visit/Annual Wellness Visit 03/02/2024 OSTEOPOROSIS SCREENING Completed 05/13/2012, 2012 Insurance [employer] [facility] Care Teams Orthodontic Lab Technician Relationship Specialty Start Date End Date Kia Silva MD [address] [place] [phone] PCP - General Family Practice 09/09/21
[2024-04-15 09:07] LABS: Basophils Absolute Auto 0.1 K/mm3 (0.0-0.1); Eosinophils Absolute Auto 0.3 K/mm3 (0-0.3); Hematocrit 47.8 % (37.0-47.0); Immature Granulocyte Absolute 0.02 K/mm3 (0.00-0.031); Immature Granulocyte Percent A 0.3 % (0-0.5); Lymphocytes Absolute Auto 1.51 K/mm3 (0.9-3.2); Lymphocytes Percent Auto 24.9 % (18.3-44.2); Mean Corpuscular HGB Conc 33.5 g/dl (32-36); Mean Corpuscular Hemoglobin 31.4 pg (26-34); Mean Corpuscular Volume 93.7 fl (80-100); Mean Platelet Volume 10.7 fl (7.4-10.4); Monocytes Absolute Auto 0.5 K/mm3 (0.1-0.6); Monocytes Percent Auto 8.9 % (2.6-8.5); Neutrophils Absolute Auto 3.6 K/mm3 (1.3-6.7); Neutrophils Percent Auto 59.9 % (45.5-73.1); Platelet Count Result 175 k/mm3 (150-375); Red Cell Distribution Width 13.6 % (11.5-14.5); White Blood Count 6.1 K/mm3 (4.5-10.0)
[2024-04-15 10:18] LABS: Cholesterol 243 mg/dL (0-200); HDL Direct 58 mg/dL; Triglycerides 158 mg/dL (<150)
[2024-04-15 10:23] LABS: Alanine Aminotransferase 24 U/L (6-35); Albumin Level 4.3 g/dL (3.5-5.1); Alkaline Phosphatase 71 U/L (38-126); Anion Gap 9 mmol/L (4-12); Aspartate Amino Transferase 28 U/L (14-36); Blood Urea Nitrogen 17 mg/dL (7-17); Calcium 9.6 mg/dL (8.4-10.2); Carbon Dioxide 31 mmol/L (22-30); Chloride 101 mmol/L (98-107); Estimated Glomerular Filt Rate 57; Glucose 98 mg/dL (65-110); Sodium 141 mmol/L (137-145)
[2024-04-15 10:29] LABS: LDL Cholesterol Direct 131 mg/dL
[2024-04-15 10:48] LABS: Carcinoembryonic Antigen 4.7 ng/mL (0.0-3.0)
[2024-04-15 10:50] LABS: Vitamin D 25 Hydroxy 27.8 ng/mL
== END 2024-04-15 08:51 | disposition home or self-care (01) ==
LOC: ANHLAB 08:51
PROVIDERS: Nurse Practitioner Family; PCP Family Medicine; Visit Provider Internal Medicine Hematology & Oncology
DX: C18.4 Malignant neoplasm of transverse colon (principal); E78.5 Hyperlipidemia, unspecified; E03.9 Hypothyroidism, unspecified; E55.9 Vitamin D deficiency, unspecified
CPT/HCPCS: 36415; 80053; 80061; 82306; 82378; 84439; 84443; 85025

== ENCOUNTER 2024-07-19 08:42 | Outpatient (CLI) | payer MEDICARE, SELFPAY ==
--- NOTE | ~2024-07-19 | CT_ITS ---
CT of the Abdomen and Pelvis: Indication: Colon cancer Technique: 2.5 mm axial scans were obtained through the abdomen and pelvis following intravenous adm inistration of 100 cc of Omnipaque 350. Dose reduction technique was used on this scan by utilizing a utomated exposure control and iterative reconstruction technique. The dose-length product (DLP) was 6 67.93 mGy-cm. COMPARISON: 08/07/2023 Findings: Scans through the lung bases are unremarkable. The liver, spleen, pancreas, gallbladder, adrenals and kidneys are within normal limits. There are at herosclerotic calcifications of the aorta. No lymphadenopathy. No bowel obstruction or bowel wall thickening. Marked air distention of the proximal half of the colo n is present, similar to prior exam. Postoperative change at the enterocolonic region noted.. Images through the pelvis were performed. Urinary bladder unremarkable. No pelvic mass seen. Impression: No evidence for active malignancy or metastatic disease. Stable marked air distention of the transverse colon in particular. Reviewed, dictated and finalized at location . Impression: No evidence for active malignancy or metastatic disease. Stable marked air distention of the transverse colon in particular.
--- OUTSIDE RECORDS SUMMARY | 2024-07-19 08:51 | XMS_ITS | Clinical Summary ---
Author Organization [facility]eline [facility] Address [address] [place] [address] Care Team Providers Care Architectural Practice Manager Name Role Phone Kia Silva MD Primary [...] Date Malignant neoplasm of transverse colon 2 Encounters Date Type Department Care Team Description 05/18/2024 External Device Data STL ABSTRACTION Provider, Abstract 05/07/2024 External Device Data STL ABSTRACTION Provider, Abstract 05/06/2024 External Device Data STL ABSTRACTION Provider, Abstract from Last 3 Months Family History Medical History Relation Name Comments [...] Care Team (Late st Contact Info) Description 07/26/2024 2:45 PM CDT Office Visit [facility] Oncology and Hematology - [place] [address] [facility] [address] [place] [address] Silvestre Escoto MD [address] [facility] [address] [place] [address] Health Maintenance Due Date Last Done Comments DTAP/TDAP/TD VACCINES (1 - Tdap) 1965 PNEUMOCOCCAL VACCINE 50+ YEA RS (1 of 1 - PCV) 1996 ZOSTER VACCINE (1 of 2) 1996 OSTEOPOROSIS SCREENING 05/13/2017 05/13/2012, 2012 RSV VACCINE (60+ or ) (1 - 1-dose 75+ series) 2021 INFLUENZA VACCINE (#1) 2023 12/28/2010, 2009 Insurance [employer] [facility] MCR Care Teams Architectural Practice Manager Relationship Specialty Start Date End Date Kia Silva MD [address] [place] [phone] PCP - General Family Practice 09/09/21
[2024-07-19 09:08] LABS: Estimated Glomerular Filt Rate 44
== END 2024-07-19 08:43 | disposition home or self-care (01) ==
PROVIDERS: PCP Family Medicine; Visit Provider Internal Medicine Hematology & Oncology
DX: R14.0 Abdominal distension (gaseous) (principal); C18.4 Malignant neoplasm of transverse colon
CPT/HCPCS: 74177; Q9967

== ENCOUNTER 2024-07-21 09:40 | Outpatient (CLI) | payer MEDICARE, SELFPAY ==
--- OUTSIDE RECORDS SUMMARY | 2024-07-21 09:43 | XMS_ITS | Encounter Summary ---
Author Organization [facility] Address [address] [place] [address] Care Team Providers Care Wrapping Clerk Name Role Phone Kia Silva MD Primary Care Provider Encounter Details Date Type Department Care Team (Late st Contact Info) Description 07/19/2024 External Device Data STL ABSTRACTION Provider, Abstract NO ADDRESS ON FILE Social History Tobacco Use Types Packs/Day Years Used Date Smoking Tobacco: Never Alcohol Use Standard Drinks/Week Comments Yes 0 (1 standard drink = 0.6 oz pur e alcohol) Comments No Sex and Gender Information Value Date Recorded Sex Assigned at Not on file Legal Sex Female 2:31 PM CDT Gender Identity Not on file Sexual Orientation Not on file documented as of this encounter Plan of Treatment Upcoming Encounters Date Type Department Care Team (Late st Contact Info) Description 07/26/2024 2:45 PM CDT Office Visit [facility] Oncology and Hematology - [place] [address] [facility] [address] [place] [address] Silvestre Escoto MD [address] [facility] [address] [place] [address] documented as of this encounter Visit Diagnoses Not on filedocumented in this encounter Care Teams Wrapping Clerk Relationship Specialty Start Date End Date Kia Silva MD [address] [place] [address] PCP - General Family Practice 09/09/21 documented as of this encounter
--- OUTSIDE RECORDS SUMMARY | 2024-07-21 09:43 | XMS_ITS | Clinical Summary ---
Author Organization [facility] Madeline Lord Address [address] [facility] [place] [address] Care Team Providers Care Cardroom Manager Name Role Phone Kia Silva MD [...] Encounters Date Type Department Care Team Description 07/20/[address] [facility] Oncology and Hematology - [place] [address] [facility] [address] [address] Silvestre Escoto MD 07/19/2024 External Device Data STL ABSTRACTION Provider, Abstract 05/18/2024 External Device Data STL ABSTRACTION Provider, [...] Description 07/26/2024 2:45 PM CDT Office Visit [facility] Oncology and Hematology - [place] [address] [facility] [address] [place] [address] Silvestre Escoto MD [address] [facility] [address] [place] [address] Health Maintenance Due Date Last Done Comments DTAP/TDAP/TD VACCINES (1 - Tdap) 1965 PNEUMOCOCCAL VACCINE 50+ YEA RS (1 of 1 - PCV) 1996 ZOSTER VACCINE (1 of 2) 1996 OSTEOPOROSIS SCREENING 05/13/2017 05/13/2012, 2012 RSV VACCINE (60+ or ) (1 - 1-dose 75+ series) 2021 INFLUENZA VACCINE (#1) 2023 12/28/2010, 2009 [place] Prev entative Visit/Annual Wellness Visit 03/02/2024 Procedures Procedure Name Priority Date/Time Associated Diagnosis Comments CT ABDOMEN PELVIS W CONTRAST Routine 07/19/2024 2:45 PM CDT from Last 3 Months Results * CT ABDOMEN PELVIS W CONTRAST (07/19/2024 2:45 PM CDT) Anatomical Region Laterality Modality Abdomen Computed Tomogra phy Silvestre Escoto MD CT ORDERABLES Final Result from Last [address] [facility] [place] Care Teams Cardroom Manager Relationship Specialty Start Date End Date Kia Silva MD [address] [place] [phone] PCP - General Family Practice 09/09/21
--- OUTSIDE RECORDS SUMMARY | 2024-07-21 09:43 | XMS_ITS | Encounter Summary ---
Author Organization [facility] [employer] Address [address] [place] [address] Care Team Providers Care Assistant Professor Of English Name Role Phone Kia Silva MD Primary Care Provider Encounter Details Date Type Department Care Team ([facility] Contact Info) Description 07/20/2024 Orders Only [facility] Oncology and Hematology [place] [address] [place] [address] Silvestre Escoto MD [facility] [employer] [address] [place] [address] Social History Tobacco Use Types Packs/Day Years [...] Encounters Date Type Department Care Team (Late Contact Info) Description 07/26/2024 2:45 PM CDT Office Visit [facility] Oncology and Hematology - [place] [address] [place] [address] Silvestre Escoto MD [facility] [employer] [address] [place] [address] documented as of this encounter Procedures Procedure Name Priority Date/Time Associated Diagnosis Comments CT ABDOMEN PELVIS W CONTRAST Routine 07/19/2024 2:45 PM CDT documented in this encounter Results * CT ABDOMEN PELVIS W CONTRAST (07/19/2024 2:45 PM CDT) Anatomical Region Laterality Modality Abdomen Computed Tomogra phy us Silvestre Escoto MD CT ORDERABLES Final Result documented in this encounter Visit Diagnoses Not on filedocumented in this encounter Care Teams Assistant Professor Of English Relationship Specialty Start Date End Date Kia Silva MD [address] [place] [address] PCP - General Family Practice 09/09/21 documented as of this encounter
[2024-07-21 10:08] LABS: Basophils Absolute Auto 0.1 K/mm3 (0.0-0.1); Basophils Percent Auto 0.9 % (0.2-1.2); Eosinophils Absolute Auto 0.3 K/mm3 (0-0.3); Eosinophils Percent Auto 5.1 % (0-4.4); Hematocrit 48.2 % (37.0-47.0); Hemoglobin 15.9 g/dL (12.0-15.0); Immature Granulocyte Absolute 0.02 K/mm3 (0.00-0.031); Immature Granulocyte Percent A 0.4 % (0-0.5); Lymphocytes Absolute Auto 1.45 K/mm3 (0.9-3.2); Lymphocytes Percent Auto 26.4 % (18.3-44.2); Mean Corpuscular Hemoglobin 31.1 pg (26-34); Mean Corpuscular Volume 94.3 fl (80-100); Mean Platelet Volume 10.7 fl (7.4-10.4); Monocytes Absolute Auto 0.5 K/mm3 (0.1-0.6); Monocytes Percent Auto 8.9 % (2.6-8.5); Neutrophils Absolute Auto 3.2 K/mm3 (1.3-6.7); Neutrophils Percent Auto 58.3 % (45.5-73.1); Platelet Count Result 164 k/mm3 (150-375); Red Blood Count 5.11 M/mm3 (4.2-5.4); Red Cell Distribution Width 13.2 % (11.5-14.5); White Blood Count 5.5 K/mm3 (4.5-10.0)
[2024-07-21 12:07] LABS: Alanine Aminotransferase 26 U/L (6-35); Albumin Level 4.4 g/dL (3.5-5.1); Alkaline Phosphatase 58 U/L (38-126); Anion Gap 7 mmol/L (4-12); Aspartate Amino Transferase 38 U/L (14-36); Bilirubin,Total 1.1 mg/dL (0.2-1.3); Blood Urea Nitrogen 15 mg/dL (7-17); Calcium 8.8 mg/dL (8.4-10.2); Carbon Dioxide 30 mmol/L (22-30); Chloride 105 mmol/L (98-107); Estimated Glomerular Filt Rate 54; Glucose 98 mg/dL (65-110); Potassium 4.1 mmol/L (3.4-5.0); Sodium 142 mmol/L (137-145)
[2024-07-21 12:43] LABS: Carcinoembryonic Antigen 4.7 ng/mL (0.0-3.0)
== END 2024-07-21 09:41 | disposition home or self-care (01) ==
LOC: ANHLAB 09:41
PROVIDERS: PCP Family Medicine; Visit Provider Internal Medicine Hematology & Oncology
DX: C18.4 Malignant neoplasm of transverse colon (principal)
CPT/HCPCS: 36415; 80053; 82378; 85025

== ENCOUNTER 2024-09-28 08:19 | Outpatient (CLI) | payer MEDICARE, SELFPAY ==
--- NOTE | ~2024-09-28 | DEXA_ITS ---
Bone Density Report Name: SOFIE GUILLEN Age: 78 Sex: Female Ethnicity: White Date of : 1945 Indication: osteopenia; monitoring treatment; height loss; prior fracture; Referring Provider: VILMA SHARP Study: Bone densitometry was performed. Exam Date: September 28, 2024 Accession number: [id number] Bone Density: Region BMD T-score Z-score Classification AP Spine(L1-L4) 0.883 -1.5 1.1 Osteopenia Femoral Neck (Left) 0.650 -1.8 0.4 Osteopenia Total Hip (Left) 0.843 -0.8 1.1 Normal Femoral Neck (Right) 0.589 -2.3 -0.1 Osteopenia Total Hip (Right) 0.817 -1.0 0.9 Normal Total Hip Mean 0.830 -0.9 1.0 Normal World Health Organization criteria for BMD impression classify patients as: Normal (T-score at or above -1.0), Osteopenia (T-score between -1.0 and -2.5), or Osteoporosis (T-score at or below -2.5). 10-year Fracture Risk: FRAX not reported because: Treated for osteoporosis Previous Exams: Region Exam Age BMD T-score BMD Change BMD Change Date g/cm2 vs Baseline vs Previous AP Spine (L1-L4) 09/28/2024 78 0.883 -1.5 0.085 (10.7%)# 0.082 (10.3%)* 07/22/2021 75 0.801 -2.2 0.003 (0.4%)# 0.030 (3.9%)* 06/20/2019 73 0.771 -2.5 -0.027 (-3.4%) -0.027 (-3.4%) 06/16/2017 71 0.798 -2.3 Total Hip(Left) 09/28/2024 78 0.843 -0.8 0.053 (6.6%)* 0.037 (4.6%)* 07/22/2021 75 0.806 -1.1 0.016 (2.0%) 0.023 (2.9%) 06/20/2019 73 0.784 -1.3 -0.007 (-0.9%) -0.007 (-0.9%) 06/16/2017 71 0.791 -1.2 Total Hip(Right) 09/28/2024 78 0.817 -1.0 0.052 (6.8%)* 0.015 (1.9%) 07/22/2021 75 0.802 -1.1 0.037 (4.8%)* 0.031 (4.0%)* 06/20/2019 73 0.771 -1.4 0.006 (0.8%) 0.006 (0.8%) 06/16/2017 71 0.765 -1.4 *Denotes significance at 95% confidence level, LSC for AP Spine = 0.022 g/cm2, LSC for Total Hip = 0.027 g/cm2 # Denotes dissimilar scan types or analysis methods Clinical Information Provided by Patient: Has had a low trauma fracture Is being treated for osteoporosis Has used the following medications: Fosamax (i.e. alendronate), Vitamin D Patient maximum height was 65.0 Menopause Age: 47 Drinks caffeinated beverages Onset of menses at age 14 Number of children 1 Impression: The patient has low bone mass, based on the Right Femoral Neck T-score. The patient has risk factors, including: previous fracture. No significant bone loss was observed. Discussion: PATIENT UNDER TREATMENT WITH NO SIGNIFICANT BMD LOSS SINCE LAST EXAM. In an untreated patient, BMD typically declines with age. A lack of decline or gain is usually a sign that treatment is efficacious and fracture risk is reduced. It is important to ask patients whether they are taking their medications and to encourage continued and appropriate compliance with their osteoporosis therapies to reduce fracture risk. It is also important to review their risk factors and encourage appropriate calcium and vitamin D intakes, exercise, fall prevention and other lifestyle measures. Follow-Up: Consider a repeat BMD and Vertebral Fracture Assessment (VFA) exam in 2 years or sooner if medically necessary, to reassess this patient's status. Reported by: AZUL on 09/28/2024 8:58:00 AM. Reviewed, dictated and finalized at location A.
--- OUTSIDE RECORDS SUMMARY | 2024-09-28 08:33 | XMS_ITS | Clinical Summary ---
Author Organization [facility] Rainerrinablue Lord Address [address] [place] [address] Care Team Providers Care Power System Electrical Engineer Name Role Phone Kia Silva MD Primary [...] Encounters Date Type Department Care Team Description 09/14/2024 External Device Data STL ABSTRACTION Provider, Abstract 09/13/2024 External Device Data STL ABSTRACTION Provider, Abstract 08/05/2024 Orders Only [facility] Oncology and Hematology - [place] [address] [place] [address] Silvestre Escoto MD 08/02/2024 External Device Data STL ABSTRACTION Provider, Abstract 07/26/2024 2:45 PM CDT Office Visit [facility] Oncology and Hematology - [place] [address] [place] [address] Silvestre Escoto MD Malignant neoplasm of transverse colon (CMS/HCC) (Primary Dx) 07/21/2024 External Device Data STL ABSTRACTION Provider, Abstract 07/20/2024 External Device Data STL ABSTRACTION Provider, Abstract 07/20/2024 Orders Only [facility] Oncology and Hematology [facility] [address] [place] [address] Silvestre Escoto MD 07/19/2024 External Device [...] Sign Reading Time Taken Comments Blood Pressure 137/77 07/26/2024 2:45 PM CDT Pulse 85 07/26/2024 2:45 PM CDT Temperature 36.8 C (98.3 F) 07/26/2024 2:45 PM CDT Respiratory Rate 14 07/26/2024 2:45 PM CDT Oxygen Saturation 96% 07/26/2024 2:45 PM CDT Inhaled Oxygen Concentration - - Weight 79.2 kg (174 lb 9.6 oz) 07/26/2024 2:45 P M CDT Height 162.6 cm (5' 4) 09/09/2021 3:06 PM CDT Body Mass Index 29.97 09/09/2021 3:06 PM CDT Plan of Treatment Upcoming Encounters Date Type Department Care Team (Late st Contact Info) Description 12/02/2024 11:00 AM CDT Office Visit [facility] Oncology and Hematology [place] [address] [place] [address] Silvestre Escoto MD [facility] [address] [place] [address] Health Maintenance Due Date Last Done Comments DTAP/TDAP/TD VACCINES (1 - Tdap) 1965 PNEUMOCOCCAL VACCINE 50+ YEA RS (1 of 1 - PCV) 1996 ZOSTER VACCINE (1 of 2) 1996 OSTEOPOROSIS SCREENING 05/13/2017 05/13/2012, 2012 RSV VACCINE (60+ or ) (1 - 1-dose 75+ series) 2021 INFLUENZA VACCINE (#1) 2024 12/28/2010, 2009 Procedures Procedure Name Priority Date/Time Associated Diagnosis Comments COMPREHENSIVE METABOLIC PANEL Routine 07/21/2024 11:43 AM CDT CBC WITH DIFFERENTIAL Routine 07/21/2024 11:[address] ABDOMEN PELVIS W CONTRAST Routine 07/19/2024 2:45 PM CDT from Last 3 Months Results * COMPREHENSIVE METABOLIC PANEL (07/21/2024 11:43 AM CDT) Blood us Silvestre Escoto MD CHEMISTRY ORDERABLES Final Resu lt * CBC WITH DIFFERENTIAL (07/21/2024 11:21 AM CDT) Blood us Silvestre Escoto MD HEMATOLOGY ORDERABLES Final Res ult * CT ABDOMEN PELVIS W CONTRAST (07/19/2024 2:45 PM CDT) Anatomical Region Laterality Modality Abdomen Computed Tomogra phy us Silvestre Escoto MD CT ORDERABLES Final Result from Last [address] [facility] [place] [phone] Care Teams Power System Electrical Engineer Relationship Specialty Start Date End Date Kia Silva MD [address] [place] [address] PCP - General Family Practice 09/09/21
== END 2024-09-28 08:20 | disposition home or self-care (01) ==
LOC: ANHIMG 08:23
PROVIDERS: PCP Nurse Practitioner Family; Visit Provider Nurse Practitioner Family
DX: M85.89 Other specified disorders of bone density and structure, multiple sites (principal)
CPT/HCPCS: 77080

== ENCOUNTER 2024-11-28 10:29 | Outpatient (CLI) | payer MEDICARE, SELFPAY ==
[2024-11-28 10:47] LABS: Hematocrit 48.8 % (37.0-47.0); Hemoglobin 16.2 g/dL (12.0-15.0); Immature Granulocyte Percent A 0.5 % (0-0.5); Lymphocytes Absolute Auto 1.86 K/mm3 (0.9-3.2); Mean Corpuscular HGB Conc 33.2 g/dl (32-36); Mean Corpuscular Hemoglobin 31.0 pg (26-34); Mean Corpuscular Volume 93.5 fl (80-100); Nucleated Red Blood Cells Absolute Auto 0.000 K/mm3 (0.0-0.012); Nucleated Red Blood Cells Perc 0.0 % (0.0-0.2); Platelet Count Result 167 k/mm3 (150-375); Red Blood Count 5.22 M/mm3 (4.2-5.4); White Blood Count 6.5 K/mm3 (4.5-10.0)
--- OUTSIDE RECORDS SUMMARY | 2024-11-28 11:07 | XMS_ITS | Clinical Summary ---
Author Organization [facility]eline [facility] Address [address] [facility] [place] [address] Care Team Providers Care Development Expert Name Role Phone Kia Silva MD Primary [...] Encounters Date Type Department Care Team Description 10/04/2024 External Device Data STL ABSTRACTION Provider, Abstract 09/14/2024 External Device Data STL ABSTRACTION Provider, [...] Description 12/02/2024 11:00 AM CDT Office Visit [facility] Oncology and Hematology - [place] [address] [facility] [address] [place] [address] Silvestre Escoto MD [address] [facility] [address] [place] [address] Health Maintenance Due Date Last Done Comments DTAP/TDAP/TD VACCINES (1 - Tdap) 1965 PNEUMOCOCCAL VACCINE 50+ YEA RS (1 of 1 - PCV) 1996 ZOSTER VACCINE (1 of 2) 1996 OSTEOPOROSIS SCREENING 05/13/2017 05/13/2012, 2012 RSV VACCINE (60+ or ) (1 - 1-dose 75+ series) 2021 [place] Prev entative Visit/Annual Wellness Visit 03/02/2024 INFLUENZA VACCINE (#1) 2024 12/28/2010, 2009 Insurance [facility] MCR Care Teams Development Expert Relationship Specialty Start Date End Date Kia Silva MD [address] [place] [phone] PCP - General Family Practice 09/09/21
[2024-11-28 11:35] LABS: Alanine Aminotransferase 19 U/L (6-35); Albumin Level 4.6 g/dL (3.5-5.1); Alkaline Phosphatase 66 U/L (38-126); Anion Gap 8 mmol/L (4-12); Aspartate Amino Transferase 27 U/L (14-36); Bilirubin,Total 1.2 mg/dL (0.2-1.3); Blood Urea Nitrogen 17 mg/dL (7-17); Calcium 9.0 mg/dL (8.4-10.2); Carbon Dioxide 29 mmol/L (22-30); Chloride 101 mmol/L (98-107); Cholesterol 239 mg/dL (0-200); Estimated Glomerular Filt Rate 59; Glucose 90 mg/dL (65-110); HDL Direct 48 mg/dL; Potassium 4.0 mmol/L (3.4-5.0); Sodium 138 mmol/L (137-145); Total Protein 7.9 g/dL (6.3-8.2); Triglycerides 207 mg/dL (<150)
[2024-11-28 12:01] LABS: Thyroid Stimulating Hormone Reflex 1.490 uIU/mL (0.465-4.68)
[2024-11-28 13:28] LABS: Carcinoembryonic Antigen 4.6 ng/mL (0.0-3.0)
== END 2024-11-28 10:30 | disposition home or self-care (01) ==
LOC: ANHLAB 10:30
PROVIDERS: PCP Nurse Practitioner Family; Visit Provider Internal Medicine Hematology & Oncology
DX: E78.5 Hyperlipidemia, unspecified (principal); E03.9 Hypothyroidism, unspecified; E55.9 Vitamin D deficiency, unspecified; C18.4 Malignant neoplasm of transverse colon
CPT/HCPCS: 36415; 80053; 80061; 82306; 82378; 84443; 85025

== ENCOUNTER 2025-01-27 10:17 | Outpatient (CLI) | payer MEDICARE, SELFPAY ==
--- NOTE | ~2025-01-27 | MM_ITS ---
EXAMINATION: MM screening george BI w rosalia HISTORY: Screening. TECHNIQUE: Craniocaudal and mediolateral oblique 3-D tomosynthesis images were obtained and synthetic 2-D images were generated. CAD analysis was submitted and interpreted. COMPARISON: 2023, 2022, and 2021. BREAST PARENCHYMAL COMPOSITION: Dense: The breast tissue is heterogeneously dense, which may obscure small masses. FINDINGS: No suspicious masses are seen. There are no suspicious calcifications. No unexplained architectural distortion is seen. There are no skin or nipple abnormalities identified. There is no adenopathy seen on the images submitted. IMPRESSION: No mammographic evidence to suggest malignancy is seen. The patient may return to screening mammography as per ACR guidelines. BI-RADS: 1 - Negative. Reviewed, dictated and finalized at location A. INE REBUILDER
== END 2025-01-27 10:18 | disposition home or self-care (01) ==
LOC: ANHFOHIMG 10:19
PROVIDERS: PCP Nurse Practitioner Family; Visit Provider Family Medicine
DX: Z12.31 Encounter for screening mammogram for malignant neoplasm of breast (principal)
CPT/HCPCS: 77063; 77067